=== PATIENT | male | born 1975 | race Caucasian/White ===

== ENCOUNTER 2017-10-08 23:30 | Emergency (ER) | payer BC ==
[2017-10-08] MEDS ORDERED: IPRATROPIUM-ALBUTEROL 3 ML NEB INHALATION STA (23:44)
[2017-10-08] MEDS ORDERED: DEXAMETHASONE SOD PHOSPHATE 10 MG/ML 1 ML VIAL IM STA (23:44)
[2017-10-08] MEDS ORDERED: AZITHROMYCIN 500 MG TAB PO STA (23:44)
[2017-10-08 23:45] VITALS: BP 162/78; RESP 18; TEMP 98.8
--- NOTE | 2017-10-08 23:55 | ED ---
General Adult HPI - General Chief complaint: Upper Respiratory Infection Stated complaint: LENA Time Seen by Provider: 10/08/17 23:41 Source: patient, RN notes reviewed, old records reviewed Mode of arrival: ambulatory Limitations: no limitations - History of Present Illness Initial comments: This is a 41-year-old male to the ER for evaluation. They presents for evaluation regarding cough congestion. Patient denies history of smoking but states she does get history of bronchitis. No medical history takes no medication. No chest pain. Denies fever. Patient states difficulty breathing 2 days. No improvement despite breathing treatments at home he does have inhaler from last year when he had similar symptoms - Related Data Home Medications Medication Instructions Recorded Confirmed Atorvastatin Calcium [Lipitor] 20 mg PO DAILY 02/27/17 02/27/17 Cholecalciferol [Vitamin D3] 1,000 unit PO DAILY 02/27/17 02/27/17 Labetalol HCl [Trandate] 300 mg PO BID 02/27/17 02/27/17 Omeprazole [PriLOSEC] 40 mg PO BID 02/27/17 02/27/17 amLODIPine BESYLATE [Norvasc] 5 mg PO DAILY 02/27/17 02/27/17 hydrALAZINE HCL 25 mg PO BID 02/27/17 02/27/17 Previous Rx's Medication Instructions Recorded Albuterol Inhaler [Ventolin Hfa 1 - 2 puff INHALATION Q4HR PRN #1 02/27/17 Inhaler] inhaler predniSONE 40 mg PO DAILY 5 Days #10 tab 02/27/17 Allergies Allergy/AdvReac Type Severity Reaction Status Date / Time bacitracin Allergy Unknown Verified 10/08/17 23:43 [From Neosporin ([id number])] codeine Allergy Unknown Verified 10/08/17 23:43 Childhood neomycin Allergy Unknown Verified 10/08/17 23:43 [From Neosporin ([id number])] polymyxin B Allergy Unknown Verified 10/08/17 23:43 [From Neosporin ([id number])] Review of Systems ROS Statement: Those systems with pertinent positive or pertinent negative responses have been documented in the HPI. ROS Other: All systems not noted in ROS Statement are negative. Past Medical History Past Medical History: No Reported History Additional Past Medical History / Comment(s): nephrotic syndrome History of Any Multi-Drug Resistant Organisms: None Reported Past Surgical History: No Surgical Hx Reported Past Psychological History: No Psychological Hx Reported Smoking Status: Former smoker Past Alcohol Use History: None Reported Past Drug Use History: None Reported General Exam Limitations: no limitations General appearance: alert, in no apparent distress Head exam: Present: atraumatic, normocephalic, normal inspection Eye exam: Present: normal appearance, PERRL, EOMI. Absent: scleral icterus, conjunctival injection, periorbital swelling ENT exam: Present: normal exam, mucous membranes moist Neck exam: Present: normal inspection. Absent: tenderness, meningismus, lymphadenopathy Respiratory exam: Present: normal lung sounds bilaterally, wheezes (Diffuse). Absent: respiratory distress, rales, rhonchi, stridor Cardiovascular Exam: Present: regular rate, normal rhythm, normal heart sounds. Absent: systolic murmur, diastolic murmur, rubs, gallop, clicks GI/Abdominal exam: Present: soft, normal bowel sounds. Absent: distended, tenderness, guarding, rebound, rigid Extremities exam: Present: normal inspection, full ROM, normal capillary refill. Absent: tenderness, pedal edema, joint swelling, calf tenderness Back exam: Present: normal inspection Neurological exam: Present: alert, oriented X3, CN II-XII intact Psychiatric exam: Present: normal affect, normal mood Skin exam: Present: warm, dry, intact, normal color. Absent: rash Course Vital Signs 10/08/17 23:43 Temperature 98.8 F Pulse Rate 98 Respiratory 18 Rate Blood Pressure 162/78 O2 Sat by Pulse 96 Oximetry - Reevaluation(s) Reevaluation #1: 10/08/17 23:54 Symptoms improved with breathing treatments, symptom management Medical Decision Making - Medical Decision Making 38 female the ER for evaluation, positive acute bronchitis, will be discharged and steroids breathing treatments. Patient feeling better after breathing treatment here in the ER, no acute distress able to ambulate without difficulty and patient can be discharged home - Radiology Data Radiology results: report reviewed (Chest x-rays negative for acute disease), image reviewed Disposition Clinical Impression: Upper respiratory infection, Acute bronchitis Disposition: HOME SELF-CARE Condition: Good Instructions: Upper Respiratory Infection (ED), Acute Bronchitis (ED) Is patient prescribed a controlled substance at d/c from ED?: No Referrals: Jose Quinones DO [Primary Care Provider] - 1-2 days
--- NOTE | 2017-10-09 00:06 | XR ---
EXAMINATION TYPE: XR chest 1V portable DATE OF EXAM: 10/08/2017 COMPARISON: 02/27/2017 HISTORY: Chest pain TECHNIQUE: Single frontal view of the chest is obtained. FINDINGS: Heart and mediastinum are normal. Lungs are clear. Diaphragm is normal. Bony thorax appear s normal. IMPRESSION: Normal chest. No change.
[2017-10-09 00:23] VITALS: PULSE 88
== END 2017-10-09 00:30 | disposition home or self-care (01) ==
LOC: EC 23:30
DX: J20.9 Acute bronchitis, unspecified (principal); J06.9 Acute upper respiratory infection, unspecified; Z87.891 Personal history of nicotine dependence; Z79.899 Other long term (current) drug therapy; Z88.1 Allergy status to other antibiotic agents; Z88.5 Allergy status to narcotic agent
CPT/HCPCS: 94640 ×2; 71045; 99284; 96372; J1100

== ENCOUNTER 2019-01-08 08:53 | Emergency (ER) | payer BC ==
[2019-01-08] MEDS ORDERED: IPRATROPIUM-ALBUTEROL 3 ML NEB INHALATION STA (09:18)
[2019-01-08] MEDS ORDERED: DEXAMETHASONE SOD PHOSPHATE 10 MG/ML 1 ML VIAL IV STA (09:18)
--- NOTE | 2019-01-08 09:21 | ED ---
General Adult HPI - General Chief complaint: Shortness of Breath Stated complaint: SOB Time Seen by Provider: 01/08/19 08:57 Source: patient Mode of arrival: wheelchair Limitations: no limitations - History of Present Illness Initial comments: Dictation was produced using [employer] dictation software. please excuse any grammatical, word or spelling errors. Chief Complaint: 43-year-old male past medical history of nephrotic syndrome presents with chief complaint shortness of breath. History of Present Illness: A 43-year-old male who has past medical history of nephrotic syndrome. Patient takes multiple medications for his nephrotic syndrome. Takes prednisone on a regular basis. Patient has been feeling sick for the last one week or so. He was given a Z-Brad with no significant improvement of his symptoms. 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 Patient was also given an albuterol inhaler from his primary care physician which has not improved his dyspnea at all. Patient den ies any history of fever. He gets usual swelling all over his body from the nephrotic syndrome. The ROS documented in this emergency department record has been reviewed and confirmed by me. Those systems with pertinent positive or negative responses have been documented in the HPI. All other systems are other negative and/or noncontributory. PHYSICAL EXAM: General Impression: Alert and oriented x3, not in acute distress HEENT: Normocephalic atraumatic, extra-ocular movements intact, pupils equal and reactive to light bilaterally, mucous membranes moist. Cardiovascular: Heart regular rate and rhythm, S1&S2 audible, no murmurs, rubs or gallops Chest: Bilateral lung wheezing and coughing Abdomen: Bowel sounds present, abdomen soft, non-tender, non-distended, no organomegaly Musculoskeletal: Pulses present and equal in all extremities, no peripheral edema Motor: no focal deficits noted Neurological: CN II-XII grossly intact, no focal motor or sensory deficits noted Skin: Intact with no visualized rashes Psych: Normal affect and mood ED course:43-year-old male presents chief complaint of dyspnea and URI type symptoms. Vital signs upon arrival shows heart rate of 108 with a respiratory rate of 30, rest vital signs within acceptable limits. Laboratory evaluation obtained. Leukocytosis of 0.2, metabolic panel is unremarkable. Urinalysis is unremarkable. Influenza is negative. Chest x-ray is nonacute. Patient breathing treatment, Decadron. Patient is much improved and he is amenable for discharge. Patient was recently on Keflex. We will give patient a 5 day Zithromax pack. Patient also given referral to outpatient pulmonology. Patient understandable agreeable to plan. He has albuterol inhaler at home. EKG interpretation: Ventricular rate 99, normal sinus rhythm,. Interval 140, QS 92, QTc 451. No MI prolongation, no QTC prolongation, no ST or T-wave changes noted. Overall, this EKG is unremarkable - Related Data Home Medications Medication Instructions Recorded Confirmed Atorvastatin Calcium [Lipitor] 20 mg PO HS 02/27/17 01/08/19 Labetalol HCl [Trandate] 300 mg PO BID 02/27/17 01/08/19 amLODIPine BESYLATE [Norvasc] 5 mg PO DAILY 02/27/17 01/08/19 Ergocalciferol [Vitamin D2] 50,000 unit PO Q7D 01/08/19 01/08/19 Furosemide [Lasix] 40 mg PO DAILY 01/08/19 01/08/19 Mycophenolate Mofetil [Cellcept] 1,500 mg PO BID 01/08/19 01/08/19 hydrALAZINE HCL 50 mg PO DAILY 01/08/19 01/08/19 Previous Rx's Medication Instructions Recorded Azithromycin [Zithromax Z-pack] 0 mg PO DIRECTED #6 tab 01/08/19 Allergies Allergy/AdvReac Type Severity Reaction Status Date / Time bacitracin Allergy Unknown Verified 01/08/19 10:04 [From Neosporin ([id number])] codeine Allergy Unknown Verified 01/08/19 10:04 Childhood neomycin Allergy Unknown Verified 01/08/19 10:04 [From Neosporin ([id number])] polymyxin B Allergy Unknown Verified 01/08/19 10:04 [From Neosporin ([id number])] Review of Systems ROS Statement: Those systems with pertinent positive or pertinent negative responses have been documented in the HPI. ROS Other: All systems not noted in ROS Statement are negative. Past Medical History Past Medical History: No Reported History Additional Past Medical History / Comment(s): nephrotic syndrome History of Any Multi-Drug Resistant Organisms: None Reported Past Surgical History: No Surgical Hx Reported Past Psychological History: No Psychological Hx Reported Smoking Status: Former smoker Past Alcohol Use History: None Reported Past Drug Use History: None Reported General Exam Limitations: no limitations Course Vital Signs 01/08/19 01/08/19 01/08/19 08:54 09:07 09:41 Temperature 98.0 F Pulse Rate 108 H 98 Respiratory 22 30 H Rate Blood Pressure 174/104 O2 Sat by Pulse 97 Oximetry 01/08/19 01/08/19 09:54 11:17 Temperature 98.1 F Pulse Rate 96 96 Respiratory 18 Rate Blood Pressure 168/114 O2 Sat by Pulse 96 Oximetry Medical Decision Making - Lab Data Result diagrams: 01/08/19 09:40 01/08/19 09:40 Lab Results 01/08/19 01/08/19 01/08/19 Range/Units 09:40 09:40 09:40 WBC 17.2 H (3.8-10.6) k/uL RBC 5.25 (4.30-5.90) m/uL Hgb 15.6 (13.0-17.5) gm/dL Hct 46.2 (39.0-53.0) % MCV 87.9 (80.0-100.0) fL MCH 29.6 (25.0-35.0) pg MCHC 33.7 (31.0-37.0) g/dL RDW 13.5 (11.5-15.5) % Plt Count 240 (150-450) k/uL Neutrophils % 80 % Lymphocytes % 8 % Monocytes % 7 % Eosinophils % 2 % Basophils % 1 % Neutrophils # 13.7 H (1.3-7.7) k/uL Lymphocytes # 1.4 (1.0-4.8) k/uL Monocytes # 1.2 H (0-1.0) k/uL Eosinophils # 0.4 (0-0.7) k/uL Basophils # 0.2 (0-0.2) k/uL Sodium 137 (137-145) mmol/L Potassium 4.0 (3.5-5.1) mmol/L Chloride 104 (98-107) mmol/L Carbon Dioxide 28 (22-30) mmol/L Anion Gap 5 mmol/L BUN 30 H (9-20) mg/dL Creatinine 1.62 H (0.66-1.25) mg/dL Est GFR (CKD-EPI)AfAm 58 (>60 ml/min/1.73 sqM) Est GFR (CKD-EPI)NonAf 51 (>60 ml/min/1.73 sqM) Glucose 89 (74-99) mg/dL Calcium 8.8 (8.4-10.2) mg/dL Magnesium 2.0 (1.6-2.3) mg/dL NT-Pro-B Natriuret Pep 151 pg/mL Urine Color Urine Appearance (Clear) Urine pH (5.0-8.0) Ur Specific Allen (1.001-1.035) Urine Protein (Negative) Urine Glucose (UA) (Negative) Urine Ketones (Negative) Urine Blood (Negative) Urine Nitrite (Negative) Urine Bilirubin (Negative) Urine Urobilinogen (<2.0) mg/dL Ur Leukocyte Esterase (Negative) Urine RBC (0-5) /hpf Urine WBC (0-5) /hpf Hyaline Casts (0-2) /lpf Urine Mucus (None) /hpf Influenza Type A RNA (Not Detectd) Influenza Type B (PCR) (Not Detectd) 01/08/19 01/08/19 Range/Units 13:01 13:10 WBC (3.8-10.6) k/uL RBC (4.30-5.90) m/uL Hgb (13.0-17.5) gm/dL Hct (39.0-53.0) % MCV (80.0-100.0) fL MCH (25.0-35.0) pg MCHC (31.0-37.0) g/dL RDW (11.5-15.5) % Plt Count (150-450) k/uL Neutrophils % % Lymphocytes % % Monocytes % % Eosinophils % % Basophils % % Neutrophils # (1.3-7.7) k/uL Lymphocytes # (1.0-4.8) k/uL Monocytes # (0-1.0) k/uL Eosinophils # (0-0.7) k/uL Basophils # (0-0.2) k/uL Sodium (137-145) mmol/L Potassium (3.5-5.1) mmol/L Chloride (98-107) mmol/L Carbon Dioxide (22-30) mmol/L Anion Gap mmol/L BUN (9-20) mg/dL Creatinine (0.66-1.25) mg/dL Est GFR (CKD-EPI)AfAm (>60 ml/min/1.73 sqM) Est GFR (CKD-EPI)NonAf (>60 ml/min/1.73 sqM) Glucose (74-99) mg/dL Calcium (8.4-10.2) mg/dL Magnesium (1.6-2.3) mg/dL NT-Pro-B Natriuret Pep pg/mL Urine Color Yellow Urine Appearance Clear (Clear) Urine pH 6.0 (5.0-8.0) Ur Specific Allen 1.027 (1.001-1.035) Urine Protein 3+ H (Negative) Urine Glucose (UA) Negative (Negative) Urine Ketones Negative (Negative) Urine Blood Moderate H (Negative) Urine Nitrite Negative (Negative) Urine Bilirubin Negative (Negative) Urine Urobilinogen <2.0 (<2.0) mg/dL Ur Leukocyte Esterase Negative (Negative) Urine RBC 1 (0-5) /hpf Urine WBC 2 (0-5) /hpf Hyaline Casts 8 H (0-2) /lpf Urine Mucus Rare H (None) /hpf Influenza Type A RNA Not Detected (Not Detectd) Influenza Type B (PCR) Not Detected (Not Detectd) Disposition Clinical Impression: URI (upper respiratory infection), Bronchitis Disposition: HOME SELF-CARE Condition: Good Instructions (If sedation given, give patient instructions): Acute Bronchitis (ED) Prescriptions: Azithromycin [Zithromax Z-pack] 0 mg PO DIRECTED #6 tab Is patient prescribed a controlled substance at d/c from ED?: No Referrals: Wesly Reddy DO [Doctor of Osteopathic Medicine] - 1-2 days Time of Disposition: 14:02
[2019-01-08 09:55] LABS: Basophils # (A) 0.2 k/uL (0-0.2); Basophils % (A) 1 %; Eosinophils # (A) 0.4 k/uL (0-0.7); Eosinophils % (A) 2 %; HCT 46.2 % (39.0-53.0); HGB 15.6 gm/dL (13.0-17.5); Lymphocytes # (A) 1.4 k/uL (1.0-4.8); Lymphocytes % (A) 8 %; MCH 29.6 pg (25.0-35.0); MCHC 33.7 g/dL (31.0-37.0); MCV 87.9 fL (80.0-100.0); Mean Platelet Volume 7.1; Monocytes # (A) 1.2 k/uL (0-1.0); Monocytes % (A) 7 %; Neutrophils # (A) 13.7 k/uL (1.3-7.7); Neutrophils % (A) 80 %; Platelet Count 240 k/uL (150-450); RBC 5.25 m/uL (4.30-5.90); RDW 13.5 % (11.5-15.5); WBC 17.2 k/uL (3.8-10.6)
[2019-01-08 10:09] LABS: Calcium 8.8 mg/dL (8.4-10.2)
--- NOTE | 2019-01-08 10:18 | XR ---
EXAMINATION TYPE: XR chest 2V DATE OF EXAM: 01/08/2019 COMPARISON: Chest x-ray October 08, 2014 HISTORY: Dyspnea with productive cough and chest tightness. TECHNIQUE: Frontal and lateral views of the chest are obtained. FINDINGS: There is chronic parenchymal change without suspicious focal air space opacity, pleural ef fusion, or pneumothorax seen. The cardiac silhouette size is within normal limits. Underlying dextro convex scoliosis centered midthoracic spine is seen. IMPRESSION: Chronic changes without suspicious acute pulmonary process.
[2019-01-08 11:20] VITALS: RESP 18
[2019-01-08 13:36] LABS: Appearance,Urine Clear (Clear); Bilirubin,Urine Negative (Negative); Blood,Urine Moderate (Negative); Color,Urine Yellow; Glucose,Urine (UA) Negative (Negative); Hyaline Casts,Urine 8 /lpf (0-2); Ketones,Urine Negative (Negative); Leukocyte Esterase,Urine Negative (Negative); Mucus,Urine Rare /hpf; Nitrite,Urine Negative (Negative); Protein,Urine 3+ (Negative); RBC,Urine 1 /hpf (0-5); Specific Gravity,Urine 1.027 (1.001-1.035); Urobilinogen,Urine <2.0 mg/dL (<2.0)
[2019-01-08 14:21] VITALS: BP 160/100; PULSE 89; TEMP 98.3
== END 2019-01-08 14:21 | disposition home or self-care (01) ==
LOC: EC 08:53
DX: J40 Bronchitis, not specified as acute or chronic (principal); J06.9 Acute upper respiratory infection, unspecified; N04.9 Nephrotic syndrome with unspecified morphologic changes; Z79.899 Other long term (current) drug therapy; Z79.51 Long term (current) use of inhaled steroids; Z88.1 Allergy status to other antibiotic agents; Z88.5 Allergy status to narcotic agent; Z87.891 Personal history of nicotine dependence
CPT/HCPCS: 36415; 94640; 93005; 83880; 80048; 83735; 85025; 81001; 87502; 71046; 99285; 96374; J1100

== ENCOUNTER 2019-03-16 05:50 | Day surgery (SDC) | payer BC ==
[2019-03-12 18:26] VITALS: BMI 32.0
[~2019-03-16 05:50] MED LIST: DEXAMETHASONE SOD PHOSPHATE 10 MG/ML 1 ML VIAL IV ONE; LACTATED RINGERS 1,000 ML IV SCH; MIDAZOLAM 2 MG/2 ML VIAL IV PRN; SCOPOLAMINE 1.5MG/72HR PATCH TRANSDERM ONE; ceFAZolin 3 GM in SODIUM CHLORIDE 0.9% 100 ML IVPB ONE; fentaNYL (PF) 50 MCG/ML 2 ML AMP IV PRN
[2019-03-16 06:33] LABS: HGB 15.9 gm/dL (13.0-17.5); MCH 29.9 pg (25.0-35.0); MCHC 33.8 g/dL (31.0-37.0); MCV 88.4 fL (80.0-100.0); Mean Platelet Volume 6.8; Platelet Count 305 k/uL (150-450); RBC 5.32 m/uL (4.30-5.90); RDW 13.7 % (11.5-15.5); WBC 17.4 k/uL (3.8-10.6)
[2019-03-16 06:35] LABS: Glucose,Whole Blood 104 mg/dL (75-99)
[2019-03-16] MEDS: ONDANSETRON 4 MG/2 ML VIAL IVP ONE ×2 (06:45→11:45)
[2019-03-16] MEDS ORDERED: HYDROCORTISONE SUCCINATE 100 MG/2 ML VIAL IVP ONE (06:52)
[2019-03-16] MEDS ORDERED: BUPIVACAINE (PF) 0.25% 30 ML VIAL SQ ONE ×2 (07:16→08:12)
[2019-03-16] MEDS ORDERED: MIDAZOLAM 2 MG/2 ML VIAL ONE (07:44)
[2019-03-16] MEDS ORDERED: HYDROmorphone (PF) 1 MG/ML ONE (07:44)
[2019-03-16] MEDS ORDERED: PROPOFOL 10 MG/ML 20 ML VIAL IV ONE (07:44)
[2019-03-16] MEDS ORDERED: MINERAL OIL 133 ML ENEMA RECTAL ONE (07:44)
[2019-03-16] MEDS ORDERED: SUCCINYLCHOLINE CHLORIDE VIAL 200 MG/10 ML VIAL IV ONE (07:44)
[2019-03-16] MEDS ORDERED: fentaNYL (PF) 50 MCG/ML 2 ML AMP ONE (07:44)
[2019-03-16] MEDS ORDERED: ROCURONIUM BROMIDE 10 MG/ML 10 ML VIAL IV ONE (07:44)
[2019-03-16] MEDS ORDERED: SODIUM CHLORIDE 4MEQ/ML 30 ML VIAL IV ONE (07:44)
[2019-03-16] MEDS ORDERED: LIDOCAINE 1% INJ 10MG/ML (20 ML MDV) ONE (07:44)
[2019-03-16] MEDS ORDERED: HEPARIN SODIUM,PORCINE 5,000 UNIT/ML 1 ML VIAL SQ ONE (07:46)
--- NOTE | 2019-03-16 07:52 | P.GSHP ---
History of Present Illness H&P Date: 03/16/19 Chief Complaint: Umbilical hernia This a 43-year-old male who's tilt umbilical hernia. Patient presents today for laparoscopic robotic-assisted repair. Past Medical History Past Medical History: GERD/Reflux, Hyperlipidemia, Hypertension, Renal Disease Additional Past Medical History / Comment(s): Nephrotic Syndrome since 2007. Hx Bronchitis,URI, has possible allergies. Umbilical hernia currently. Edema ankles, feet. History of Any Multi-Drug Resistant Organisms: None Reported Past Surgical History: No Surgical Hx Reported Additional Past Surgical History / Comment(s): Biopsy kidneys. Colonoscopy, EGD Past Anesthesia/Blood Transfusion Reactions: Motion Sickness Smoking Status: Never smoker - Past Family History Mother Family Medical History: No Reported History Medications and Allergies Home Medications Medication Instructions Recorded Confirmed Type Atorvastatin Calcium [Lipitor] 20 mg PO HS 02/27/17 03/12/19 History Labetalol HCl [Trandate] 300 mg PO BID 02/27/17 03/12/19 History amLODIPine BESYLATE [Norvasc] 5 mg PO DAILY 02/27/17 03/12/19 History Ergocalciferol [Vitamin D2] 50,000 unit PO Q7D 01/08/19 03/12/19 History Furosemide [Lasix] 40 mg PO DAILY 01/08/19 03/12/19 History Mycophenolate Mofetil [Cellcept] 1,500 mg PO BID 01/08/19 03/12/19 History hydrALAZINE HCL 50 mg PO DAILY 01/08/19 03/12/19 History Omeprazole 40 mg PO BID 03/12/19 03/12/19 History predniSONE 30 mg PO DAILY 03/12/19 03/12/19 History Allergies Allergy/AdvReac Type Severity Reaction Status Date / Time bacitracin Allergy Unknown Verified 03/16/19 06:09 [From Neosporin ([id number])] codeine Allergy Unknown Verified 03/16/19 06:09 Childhood neomycin Allergy Unknown Verified 03/16/19 06:09 [From Neosporin ([id number])] polymyxin B Allergy Unknown Verified 03/16/19 06:09 [From Neosporin ([id number])] Surgical - Exam Vital Signs Temp Pulse Resp BP Pulse Ox 98.7 F 75 16 171/107 96 03/16/19 06:30 03/16/19 06:30 03/16/19 06:30 03/16/19 06:30 03/16/19 06:30 - General well developed, well nourished - Eyes PERRL - ENT normal pinna - Neck no masses - Respiratory normal expansion - Cardiovascular Rhythm: regular - Abdomen Abdomen: soft, non tender Hernia: umbilical (3 cm umbilical hernia) Results - Labs 03/16/19 06:21 Abnormal Lab Results - Last 24 Hours (Table) 03/16/19 03/16/19 Range/Units 06:21 06:28 WBC 17.4 H (3.8-10.6) k/uL POC Glucose (mg/dL) 104 H (75-99) mg/dL Assessment and Plan Assessment: Umbilical hernia. We'll perform laparoscopic robotic-assisted repair.
[2019-03-16] MEDS ORDERED: HYDROmorphone 1 MG/ML 1 ML SYRINGE IVP ONE ×3 (08:59→09:16)
--- NOTE | 2019-03-16 09:02 | P.OP ---
Date of Procedure: 03/16/19 Preoperative Diagnosis: Incarcerated umbilical hernia Postoperative Diagnosis: Incarcerated umbilical hernia Procedure(s) Performed: Laparoscopic robotic system repair of incarcerated umbilical hernia Partial omentectomy Anesthesia: ALONDRA Surgeon: Ross Flanagan Estimated Blood Loss (ml): 5 Pathology: other (Omentum) Condition: stable Disposition: PACU Description of Procedure: The patient was placed on the operating table in the supine position. He received general anesthesia. His abdomen was prepped and draped usual fashion. Using a 5 mm optical trocar under direct visualization the peritoneal cavity was entered in the left upper quadrant. The abdomen was then insufflated. The laparoscope was placed back into the perineal cavity. Next a 8 mm robotic trocar was placed in the left lower quadrant and a 12 mm robotic trocar was placed in the left lateral position. The original 5 mm trocar was exchanged for a 8 mm robotic trocar. The patient's placed in the left side up position. And the patient was undocked the robot. The umbilical hernia was visualized. Using hook cautery the peritoneum over the umbilical hernia was excised. The incarcerated omentum was dissected free and sent to pathology. The fascial opening was repaired using 0V LOC suture. Next a piece of 11 cm round ventral light ST mesh was placed into the. Cavity and secured with 2 OV lock suture. The patient was undocked the robot. The needles were retrieved. The fascia of the 12 mm trocar site was closed with 0 Ethibond suture. Skin was closed interrupted 3-0 Monocryl suture. Dermabond dressings was applied. Patient top procedure well and was sent to recovery room stable condition.
[2019-03-16 09:04] VITALS: TEMP 97.9
[2019-03-16 09:31] VITALS: RESP 16
[2019-03-16] MEDS ORDERED: LACTATED RINGERS 1,000 ML IV ONE (09:31)
[2019-03-16] MEDS ORDERED: HYDROcodone/APAP 5-325MG 1 EACH TAB PO ONE (11:15)
[2019-03-16 11:22] VITALS: PULSE 83
[2019-03-16 12:11] VITALS: BP 153/98
== END 2019-03-16 12:26 | disposition home or self-care (01) ==
LOC: OR 05:50
PROVIDERS: ATTEND Surgery
DX: K42.0 Umbilical hernia with obstruction, without gangrene (principal); K21.9 Gastro-esophageal reflux disease without esophagitis; I10 Essential (primary) hypertension; E78.5 Hyperlipidemia, unspecified; N04.9 Nephrotic syndrome with unspecified morphologic changes; J06.9 Acute upper respiratory infection, unspecified; K65.4 Sclerosing mesenteritis; Z98.890 Other specified postprocedural states; Z79.899 Other long term (current) drug therapy; Z88.2 Allergy status to sulfonamides; Z88.5 Allergy status to narcotic agent; Z88.1 Allergy status to other antibiotic agents
CPT/HCPCS: 49653; 88302 ×2; 85027; C1781; J2250; J0330; J1644; J1100; J1720; J0690; J2405; J2001; J3010; J1170; J2704

== ENCOUNTER 2020-04-28 21:29 | Emergency (ER) | payer BC ==
--- NOTE | 2020-04-28 22:08 | ED ---
SOB HPI - General Chief Complaint: Shortness of Breath Stated Complaint: SOB Time Seen by Provider: 04/28/20 21:54 Source: patient Mode of arrival: ambulatory Limitations: no limitations - History of Present Illness Initial Comments: This patient is a 44-year-old man with history of nephrotic syndrome who presents with complaint that he is developing shortness of breath. He noticed it from the morning. He states it is similar episode and was seen here in emergency department approximately year ago, when he was given inhaled medications and was able to go home. He does not have any known lung disease. He does not recall having a fever today. No chest pain. He states he is having a little bit of a cough with some occasional greenish sputum. No change in urination or bowel movements. No leg pain or swelling. MD Complaint: shortness of breath, cough Onset/Timin -: days(s) Severity scale (1-10): 0 Consistency: constant Improves With: nothing Worsens With: lying flat, exertion Associated Symptoms: cough Treatments Prior to Arrival: none - Related Data Home Oxygen Therapy: No Home Medications Medication Instructions Recorded Confirmed Atorvastatin Calcium [Lipitor] 20 mg PO HS 02/27/17 04/28/20 Labetalol HCl [Trandate] 300 mg PO BID 02/27/17 04/28/20 amLODIPine BESYLATE [Norvasc] 5 mg PO DAILY 02/27/17 04/28/20 Ergocalciferol [Vitamin D2] 50,000 unit PO MO 01/08/19 04/28/20 Furosemide [Lasix] 80 mg PO DAILY 01/08/19 04/28/20 hydrALAZINE HCL 50 mg PO BID 01/08/19 04/28/20 Omeprazole 40 mg PO BID 03/12/19 04/28/20 Albuterol Sulfate [Proair Hfa] 1 - 2 puff INHALATION RT-Q6H PRN 04/28/20 04/28/20 Brimonidine Tartrate/Timolol 1 drop RIGHT EYE BID 04/28/20 04/28/20 [Combigan 0.2%-0.5% Eye Drops] Cyclophosphamide 150 mg PO DAILY 04/28/20 04/28/20 Guaifenesin/Dextromethorphan 1 cap PO DAILY PRN 04/28/20 04/28/20 [Robitussin [id number] Dm] Prednisolone Acetate/Pf 1 drop RIGHT EYE TID 04/28/20 04/28/20 [Prednisolone Acet 1% Eye Drop] Previous Rx's Medication Instructions Recorded Albuterol Inhaler [Ventolin Hfa 2 puff INHALATION Q4HR PRN #1 04/28/20 Inhaler] inhaler Azithromycin [Zithromax Z-pack (6 250 mg PO DIRECTED #6 tab 04/28/20 tabs)] predniSONE 60 mg PO DAILY #30 tab 04/28/20 Allergies Allergy/AdvReac Type Severity Reaction Status Date / Time bacitracin Allergy Unknown Verified 04/28/20 23:14 [From Neosporin ([id number])] codeine Allergy Unknown Verified 04/28/20 23:14 Childhood neomycin Allergy Unknown Verified 04/28/20 23:14 [From Neosporin ([id number])] polymyxin B Allergy Unknown Verified 04/28/20 23:14 [From Neosporin ([id number])] Review of Systems ROS Statement: Those systems with pertinent positive or pertinent negative responses have been documented in the HPI. ROS Other: All systems not noted in ROS Statement are negative. Constitutional: Denies: fever, chills Respiratory: Reports: cough, dyspnea. Denies: wheezes, hemoptysis Cardiovascular: Reports: dyspnea on exertion, orthopnea. Denies: chest pain, palpitations, edema, syncope Gastrointestinal: Denies: abdominal pain, nausea, vomiting, diarrhea, melena, hematochezia Genitourinary: Denies: dysuria, hematuria Musculoskeletal: Denies: back pain Skin: Denies: rash Neurological: Denies: headache, weakness, numbness Psychiatric: Reports: anxiety Past Medical History Past Medical History: GERD/Reflux, Hyperlipidemia, Hypertension, Renal Disease Additional Past Medical History / Comment(s): Nephrotic Syndrome since 2007. Hx Bronchitis,URI, has possible allergies. Umbilical hernia currently. Edema ankles, feet. History of Any Multi-Drug Resistant Organisms: None Reported Past Surgical History: No Surgical Hx Reported Additional Past Surgical History / Comment(s): Biopsy kidneys. Colonoscopy, EGD Past Anesthesia/Blood Transfusion Reactions: Motion Sickness Past Psychological History: Anxiety Smoking Status: Never smoker Past Alcohol Use History: None Reported Past Drug Use History: None Reported - Past Family History Mother Family Medical History: No Reported History General Exam Limitations: no limitations General appearance: alert, in no apparent distress Head exam: Present: atraumatic, normocephalic Eye exam: Present: conjunctival injection (Right eye). Absent: scleral icterus ENT exam: Present: normal oropharynx Neck exam: Present: normal inspection Respiratory exam: Present: wheezes. Absent: respiratory distress, rales, rhonchi, stridor, accessory muscle use, decreased breath sounds, prolonged expiratory Cardiovascular Exam: Present: regular rate, normal rhythm, normal heart sounds. Absent: systolic murmur, diastolic murmur, rubs, gallop GI/Abdominal exam: Present: soft. Absent: distended, tenderness, guarding, rebound, rigid, mass Extremities exam: Present: normal inspection, normal capillary refill. Absent: pedal edema, calf tenderness Back exam: Present: normal inspection. Absent: CVA tenderness (R), CVA tenderness (L) Neurological exam: Present: alert Skin exam: Present: warm, dry, intact, normal color. Absent: rash Course Vital Signs 04/28/20 04/28/20 04/28/20 21:36 22:16 22:27 Temperature 99.8 F H Pulse Rate 91 70 75 Respiratory 20 Rate Blood Pressure 150/90 O2 Sat by Pulse 93 L Oximetry 04/28/20 04/28/20 22:30 23:30 Temperature 98.3 F Pulse Rate 76 69 Respiratory 19 17 Rate Blood Pressure 157/98 161/97 O2 Sat by Pulse 94 L 94 L Oximetry Medical Decision Making - Lab Data Result diagrams: 04/28/20 22:24 04/28/20 22:24 Lab Results 04/28/20 04/28/20 04/28/20 Range/Units 22:24 22:24 22:24 WBC 8.8 (3.8-10.6) k/uL RBC 4.16 L (4.30-5.90) m/uL Hgb 14.0 (13.0-17.5) gm/dL Hct 38.9 L (39.0-53.0) % MCV 93.6 (80.0-100.0) fL MCH 33.7 (25.0-35.0) pg MCHC 36.0 (31.0-37.0) g/dL RDW 13.4 (11.5-15.5) % Plt Count 144 L (150-450) k/uL MPV 7.6 Neutrophils % 80 % Lymphocytes % 5 % Monocytes % 8 % Eosinophils % 5 % Basophils % 1 % Neutrophils # 7.1 (1.3-7.7) k/uL Lymphocytes # 0.4 L (1.0-4.8) k/uL Monocytes # 0.7 (0-1.0) k/uL Eosinophils # 0.4 (0-0.7) k/uL Basophils # 0.1 (0-0.2) k/uL PT 9.5 (9.0-12.0) sec INR 0.9 (<1.2) APTT 22.8 (22.0-30.0) sec D-Dimer 0.52 (<0.60) mg/L FEU Sodium 138 (137-145) mmol/L Potassium 3.4 L (3.5-5.1) mmol/L Chloride 109 H (98-107) mmol/L Carbon Dioxide 25 (22-30) mmol/L Anion Gap 4 mmol/L BUN 17 (9-20) mg/dL Creatinine 1.35 H (0.66-1.25) mg/dL Est GFR (CKD-EPI)AfAm 72 (>60 ml/min/1.73 sqM) Est GFR (CKD-EPI)NonAf 63 (>60 ml/min/1.73 sqM) Glucose 109 H (74-99) mg/dL Plasma Lactic Acid Torrey (0.7-2.0) mmol/L Calcium 8.7 (8.4-10.2) mg/dL Magnesium 1.6 (1.6-2.3) mg/dL Total Bilirubin 0.5 (0.2-1.3) mg/dL AST 28 (17-59) U/L ALT 15 (4-49) U/L Alkaline Phosphatase 94 (38-126) U/L Troponin I (0.000-0.034) ng/mL NT-Pro-B Natriuret Pep pg/mL Total Protein 6.3 (6.3-8.2) g/dL Albumin 3.4 L (3.5-5.0) g/dL Urine Color Urine Appearance (Clear) Urine pH (5.0-8.0) Ur Specific Ransom (1.001-1.035) Urine Protein (Negative) Urine Glucose (UA) (Negative) Urine Ketones (Negative) Urine Blood (Negative) Urine Nitrite (Negative) Urine Bilirubin (Negative) Urine Urobilinogen (<2.0) mg/dL Ur Leukocyte Esterase (Negative) Urine RBC (0-5) /hpf Urine WBC (0-5) /hpf Ur Squamous Epith Cells (0-4) /hpf Urine Mucus (None) /hpf Coronavirus (PCR) (Not Detectd) 04/28/20 04/28/20 04/28/20 Range/Units 22:24 22:24 22:24 WBC (3.8-10.6) k/uL RBC (4.30-5.90) m/uL Hgb (13.0-17.5) gm/dL Hct (39.0-53.0) % MCV (80.0-100.0) fL MCH (25.0-35.0) pg MCHC (31.0-37.0) g/dL RDW (11.5-15.5) % Plt Count (150-450) k/uL MPV Neutrophils % % Lymphocytes % % Monocytes % % Eosinophils % % Basophils % % Neutrophils # (1.3-7.7) k/uL Lymphocytes # (1.0-4.8) k/uL Monocytes # (0-1.0) k/uL Eosinophils # (0-0.7) k/uL Basophils # (0-0.2) k/uL PT (9.0-12.0) sec INR (<1.2) APTT (22.0-30.0) sec D-Dimer (<0.60) mg/L FEU Sodium (137-145) mmol/L Potassium (3.5-5.1) mmol/L Chloride (98-107) mmol/L Carbon Dioxide (22-30) mmol/L Anion Gap mmol/L BUN (9-20) mg/dL Creatinine (0.66-1.25) mg/dL Est GFR (CKD-EPI)AfAm (>60 ml/min/1.73 sqM) Est GFR (CKD-EPI)NonAf (>60 ml/min/1.73 sqM) Glucose (74-99) mg/dL Plasma Lactic Acid Torrey 0.9 (0.7-2.0) mmol/L Calcium (8.4-10.2) mg/dL Magnesium (1.6-2.3) mg/dL Total Bilirubin (0.2-1.3) mg/dL AST (17-59) U/L ALT (4-49) U/L Alkaline Phosphatase (38-126) U/L Troponin I <0.012 (0.000-0.034) ng/mL NT-Pro-B Natriuret Pep 171 pg/mL Total Protein (6.3-8.2) g/dL Albumin (3.5-5.0) g/dL Urine Color Urine Appearance (Clear) Urine pH (5.0-8.0) Ur Specific Ransom (1.001-1.035) Urine Protein (Negative) Urine Glucose (UA) (Negative) Urine Ketones (Negative) Urine Blood (Negative) Urine Nitrite (Negative) Urine Bilirubin (Negative) Urine Urobilinogen (<2.0) mg/dL Ur Leukocyte Esterase (Negative) Urine RBC (0-5) /hpf Urine WBC (0-5) /hpf Ur Squamous Epith Cells (0-4) /hpf Urine Mucus (None) /hpf Coronavirus (PCR) (Not Detectd) 04/28/20 04/28/20 Range/Units 22:51 22:51 WBC (3.8-10.6) k/uL RBC (4.30-5.90) m/uL Hgb (13.0-17.5) gm/dL Hct (39.0-53.0) % MCV (80.0-100.0) fL MCH (25.0-35.0) pg MCHC (31.0-37.0) g/dL RDW (11.5-15.5) % Plt Count (150-450) k/uL MPV Neutrophils % % Lymphocytes % % Monocytes % % Eosinophils % % Basophils % % Neutrophils # (1.3-7.7) k/uL Lymphocytes # (1.0-4.8) k/uL Monocytes # (0-1.0) k/uL Eosinophils # (0-0.7) k/uL Basophils # (0-0.2) k/uL PT (9.0-12.0) sec INR (<1.2) APTT (22.0-30.0) sec D-Dimer (<0.60) mg/L FEU Sodium (137-145) mmol/L Potassium (3.5-5.1) mmol/L Chloride (98-107) mmol/L Carbon Dioxide (22-30) mmol/L Anion Gap mmol/L BUN (9-20) mg/dL Creatinine (0.66-1.25) mg/dL Est GFR (CKD-EPI)AfAm (>60 ml/min/1.73 sqM) Est GFR (CKD-EPI)NonAf (>60 ml/min/1.73 sqM) Glucose (74-99) mg/dL Plasma Lactic Acid Torrey (0.7-2.0) mmol/L Calcium (8.4-10.2) mg/dL Magnesium (1.6-2.3) mg/dL Total Bilirubin (0.2-1.3) mg/dL AST (17-59) U/L ALT (4-49) U/L Alkaline Phosphatase (38-126) U/L Troponin I (0.000-0.034) ng/mL NT-Pro-B Natriuret Pep pg/mL Total Protein (6.3-8.2) g/dL Albumin (3.5-5.0) g/dL Urine Color Yellow Urine Appearance Clear (Clear) Urine pH 6.0 (5.0-8.0) Ur Specific Ransom 1.026 (1.001-1.035) Urine Protein 3+ H (Negative) Urine Glucose (UA) Negative (Negative) Urine Ketones Negative (Negative) Urine Blood Trace H (Negative) Urine Nitrite Negative (Negative) Urine Bilirubin Negative (Negative) Urine Urobilinogen <2.0 (<2.0) mg/dL Ur Leukocyte Esterase Negative (Negative) Urine RBC <1 (0-5) /hpf Urine WBC 3 (0-5) /hpf Ur Squamous Epith Cells <1 (0-4) /hpf Urine Mucus Rare H (None) /hpf Coronavirus (PCR) Not Detected (Not Detectd) - EKG Data -: EKG Interpreted by Me EKG shows normal: sinus rhythm, axis (Normal), intervals (Normal), QRS complexes (Normal), ST-T waves (Normal) Rate: normal (Rate 80 bpm) Disposition Clinical Impression: Bronchitis Disposition: HOME SELF-CARE Condition: Good Instructions (If sedation given, give patient instructions): Acute Bronchitis (ED) Prescriptions: predniSONE 60 mg PO DAILY #30 tab Albuterol Inhaler [Ventolin Hfa Inhaler] 2 puff INHALATION Q4HR PRN #1 inhaler PRN Reason: Wheezing Azithromycin [Zithromax Z-pack (6 tabs)] 250 mg PO DIRECTED #6 tab Is patient prescribed a controlled substance at d/c from ED?: No Referrals: Jose Quinones DO [Primary Care Provider] - 1-2 days
[2020-04-28] MEDS: IPRATROPIUM-ALBUTEROL 3 ML NEB INHALATION STA (22:16)
[2020-04-28] MEDS: ALBUTEROL NEBULIZED 2.5 MG/3 ML INHALATION STA (22:16)
[2020-04-28 22:33] LABS: Basophils # (A) 0.1 k/uL (0-0.2); Basophils % (A) 1 %; Eosinophils # (A) 0.4 k/uL (0-0.7); Eosinophils % (A) 5 %; HCT 38.9 % (39.0-53.0); Lymphocytes # (A) 0.4 k/uL (1.0-4.8); Lymphocytes % (A) 5 %; MCH 33.7 pg (25.0-35.0); MCV 93.6 fL (80.0-100.0); Mean Platelet Volume 7.6; Monocytes # (A) 0.7 k/uL (0-1.0); Monocytes % (A) 8 %; Neutrophils # (A) 7.1 k/uL (1.3-7.7); Neutrophils % (A) 80 %; Platelet Count 144 k/uL (150-450); RBC 4.16 m/uL (4.30-5.90); RDW 13.4 % (11.5-15.5); WBC 8.8 k/uL (3.8-10.6)
[2020-04-28 22:42] LABS: Albumin 3.4 g/dL (3.5-5.0); Calcium 8.7 mg/dL (8.4-10.2); Magnesium 1.6 mg/dL (1.6-2.3); Potassium 3.4 mmol/L (3.5-5.1); Total Bilirubin 0.5 mg/dL (0.2-1.3); Total Protein 6.3 g/dL (6.3-8.2)
[2020-04-28 22:50] LABS: D-Dimer 0.52 mg/L FEU (<0.60); INR 0.9 (<1.2); Partial Thromboplastin Time 22.8 sec (22.0-30.0); Prothrombin Time 9.5 sec (9.0-12.0)
[2020-04-28] MEDS: predniSONE 20 MG TAB PO STA (22:50)
--- NOTE | 2020-04-28 23:07 | XR ---
EXAMINATION TYPE: XR chest 2V DATE OF EXAM: 04/28/2020 COMPARISON: 01/08/2019 HISTORY: Short of breath TECHNIQUE: FINDINGS: Heart and mediastinum are normal. Lungs are clear. Diaphragm is normal. Bony thorax appears normal. IMPRESSION: Normal chest. No change.
[2020-04-28 23:10] LABS: Appearance,Urine Clear (Clear); Bilirubin,Urine Negative (Negative); Blood,Urine Trace (Negative); Color,Urine Yellow; Glucose,Urine (UA) Negative (Negative); Ketones,Urine Negative (Negative); Leukocyte Esterase,Urine Negative (Negative); Mucus,Urine Rare /hpf; Nitrite,Urine Negative (Negative); Protein,Urine 3+ (Negative); RBC,Urine <1 /hpf (0-5); Specific Gravity,Urine 1.026 (1.001-1.035); Squamous Epithelial Cell,Urine <1 /hpf (0-4); Urobilinogen,Urine <2.0 mg/dL (<2.0); WBC,Urine 3 /hpf (0-5)
[2020-04-29] MEDS: ALBUTEROL NEBULIZED 2.5 MG/3 ML INHALATION STA (00:36)
[2020-04-29 01:13] VITALS: BP 158/98; PULSE 74; RESP 19; TEMP 98.5
== END 2020-04-29 01:09 | disposition home or self-care (01) ==
LOC: EC 21:29
DX: J40 Bronchitis, not specified as acute or chronic (principal); Z20.828 Contact with and (suspected) exposure to other viral communicable diseases; N04.9 Nephrotic syndrome with unspecified morphologic changes; K21.9 Gastro-esophageal reflux disease without esophagitis; E78.5 Hyperlipidemia, unspecified; I10 Essential (primary) hypertension; F41.9 Anxiety disorder, unspecified; Z79.899 Other long term (current) drug therapy; Z88.1 Allergy status to other antibiotic agents; Z88.5 Allergy status to narcotic agent; Z88.8 Allergy status to other drugs, medicaments and biological substances
CPT/HCPCS: 36415; 94640 ×2; 93005; 85379; 83880; 80053; 83605; 83735; 84484; 85025; 85610; 85730; 81001; 87040; 87635; 71046; 99285; J7512

== ENCOUNTER → 2020-10-05 | Outpatient (CLI) | payer BC ==
[2020-10-05 09:42] LABS: INR 0.9 (<1.2); Partial Thromboplastin Time 22.1 sec (22.0-30.0); Prothrombin Time 9.5 sec (9.0-12.0)
[2020-10-05 15:51] LABS: Basophils # (A) 0.04 X 10*3/uL (0.00-0.10); Basophils % (A) 0.9 %; Eosinophils # (A) 0.43 X 10*3/uL (0.04-0.35); Eosinophils % (A) 9.9 %; HCT 36.6 % (39.6-50.0); HGB 12.8 g/dL (13.0-17.0); Lymphocytes # (A) 0.54 X 10*3/uL (0.90-5.00); Lymphocytes % (A) 12.4 %; MCH 34.1 pg (27.0-32.0); MCV 97.6 fL (80.0-97.0); Mean Platelet Volume 10.9 fL (9.5-12.2); Monocytes # (A) 0.62 X 10*3/uL (0.20-1.00); Monocytes % (A) 14.2 %; Neutrophils # (A) 2.72 X 10*3/uL (1.80-7.70); Neutrophils % (A) 62.4 %; Platelet Count 196 X 10*3/uL (140-440); RBC 3.75 X 10*6/uL (4.40-5.60); RDW 12.3 % (11.5-14.5); WBC 4.36 X 10*3/uL (4.50-10.00)
[2020-10-05 18:31] LABS: African American GFR (CKD) 54.8 (60.0-200.0); Anion Gap 6.7 mmol/L (4.00-12.00); Carbon Dioxide 21.3 mmol/L (21.6-31.8); Non-African American GFR(CKD) 47.3 (60.0-200.0); Potassium 3.9 mmol/L (3.5-5.5)
== END | disposition home or self-care (01) ==
LOC: LABWHC1 08:16
PROVIDERS: ATTEND Internal Medicine Nephrology
DX: N05.2 Unspecified nephritic syndrome with diffuse membranous glomerulonephritis (principal)
CPT/HCPCS: 36415; 80051; 82565; 84520; 85025; 85610; 85730; 86850; 86900; 86901; 86920

== ENCOUNTER 2020-10-06 08:56 | Day surgery (SDC) | payer BC ==
[2020-10-06 09:15] VITALS: RESP 16; TEMP 98.3
[2020-10-06 10:11] VITALS: PULSE 66
[2020-10-06] MEDS ORDERED: HYDROmorphone 0.5 MG/0.5 ML SYRINGE IVP STA (10:15)
[2020-10-06 10:52] VITALS: BP 188/96
--- NOTE | 2020-10-06 11:33 | CT ---
EXAMINATION TYPE: CT discontinued procedure DATE OF EXAM: 10/06/2020 COMPARISON: None HISTORY: DISCONTINUED RENAL BX CT DLP: 497 mGycm Automated exposure control for dose reduction was used. FINDINGS: The patient had an elevated blood pressure, hypertension was not compatible with the procedure. Proce dure was therefore discontinued. IMPRESSION: DISCONTINUED PROCEDURE DUE TO ELEVATED BLOOD PRESSURE.
== END 2020-10-06 10:40 | disposition home or self-care (01) ==
LOC: RADPROMAIN 08:56
PROVIDERS: ATTEND Internal Medicine Nephrology
DX: N05.2 Unspecified nephritic syndrome with diffuse membranous glomerulonephritis (principal); Z53.09 Procedure and treatment not carried out because of other contraindication; R03.0 Elevated blood-pressure reading, without diagnosis of hypertension
CPT/HCPCS: 86900; 86901; 86850; 86920; 36415; 76380; J1170

== ENCOUNTER → 2021-03-21 | Outpatient (CLI) | payer BC ==
--- NOTE | 2021-03-21 15:16 | XR ---
EXAMINATION TYPE: XR chest 2V DATE OF EXAM: 03/21/2021 COMPARISON: Chest x-ray 04/28/2020 HISTORY: Shortness of breath and cough TECHNIQUE: Frontal and lateral views of the chest are obtained. FINDINGS: There is no focal air space opacity, pleural effusion, or pneumothorax seen. The cardiac silhouette size is within normal limits. The osseous structures are intact. IMPRESSION: No acute cardiopulmonary process.
== END | disposition home or self-care (01) ==
LOC: RADXRMAIN 14:45
PROVIDERS: ATTEND Family Medicine
DX: R05.9 Cough, unspecified (principal); R06.02 Shortness of breath
CPT/HCPCS: 71046

== ENCOUNTER 2022-11-13 17:14 | Emergency (ER) | payer BC ==
[2022-11-13 17:34] VITALS: TEMP 97.8
[2022-11-13] MEDS ORDERED: ONDANSETRON 4 MG/2 ML VIAL IVP STA (18:10)
[2022-11-13] MEDS ORDERED: HYDROmorphone 1 MG/ML 1 ML SYRINGE IVP STA (18:10)
[2022-11-13] MEDS ORDERED: SODIUM CHLORIDE 0.9% 1,000 ML IV STA (18:10)
--- NOTE | 2022-11-13 18:11 | ED ---
Back Pain HPI - General Chief Complaint: Back Pain/Injury Stated Complaint: Lower Back, history of Kidney Disease Time Seen by Provider: 11/13/22 18:10 Source: patient, RN notes reviewed, old records reviewed Limitations: no limitations - History of Present Illness Initial Comments: This is a 47-year-old male to the emergency department for evaluation. Patient complaining severe back pain severe back pain today with no traumatic injury noted. Patient has no loss of bowel or bladder nausea no vomiting. No other complaints. Patient's pain is left lower back wrapping around his abdomen. Severe back pain currently. No travel history no sick contacts patient does have prior similar back pain MD Complaint: back pain, other (kidney stone) -: hour(s) Similar Symptoms Previously: Yes Place: home Radiation: abdomen Severity: moderate, severe Severity scale (1-10): 4 Consistency: constant Improves With: none Worsens With: none Associated Symptoms: denies other symptoms Treatments Prior to Arrival: other (0) - Related Data Home Medications Medication Instructions Recorded Confirmed Atorvastatin Calcium [Lipitor] 20 mg PO HS 02/27/17 01/19/21 Labetalol HCl [Trandate] 300 mg PO BID 02/27/17 01/19/21 amLODIPine BESYLATE [Norvasc] 5 mg PO DAILY 02/27/17 01/19/21 Ergocalciferol [Vitamin D2] 50,000 unit PO WEEKLY 01/08/19 01/19/21 Furosemide [Lasix] 40 mg PO DIRECTED 01/08/19 01/19/21 Omeprazole 40 mg PO BID 03/12/19 01/19/21 Albuterol Sulfate [Proair Hfa] 1 - 2 puff INHALATION RT-Q6H PRN 04/28/20 01/19/21 Loratadine [Claritin] 10 mg PO DAILY PRN 09/27/20 01/19/21 mycophenolate mofetiL [Cellcept] 500 mg PO DAILY 09/27/20 01/19/21 Previous Rx's Medication Instructions Recorded Albuterol Inhaler [Ventolin Hfa 2 puff INHALATION Q4HR PRN #1 04/28/20 Inhaler] inhaler Allergies Allergy/AdvReac Type Severity Reaction Status Date / Time bacitracin Allergy Unknown Verified 11/13/22 17:34 [From Neosporin ([id number])] neomycin Allergy Unknown Verified 11/13/22 17:34 [From Neosporin ([id number])] polymyxin B Allergy Unknown Verified 11/13/22 17:34 [From Neosporin ([id number])] Review of Systems ROS Statement: Those systems with pertinent positive or pertinent negative responses have been documented in the HPI. ROS Other: All systems not noted in ROS Statement are negative. Past Medical History Past Medical History: Dementia, GERD/Reflux, Hyperlipidemia, Hypertension, Renal Disease Additional Past Medical History / Comment(s): Nephrotic Syndrome since 2007. Hx Bronchitis,URI, has possible allergies. Umbilical hernia currently. Edema ankles, feet. History of Any Multi-Drug Resistant Organisms: None Reported Past Surgical History: No Surgical Hx Reported Additional Past Surgical History / Comment(s): Biopsy kidneys. Colonoscopy, EGD, hernia repair, cataract surgery, retina repair, retina repair again with banding. Past Anesthesia/Blood Transfusion Reactions: Motion Sickness Past Psychological History: Anxiety Smoking Status: Never smoker Past Alcohol Use History: None Reported Past Drug Use History: None Reported - Past Family History Mother Family Medical History: No Reported History General Exam Limitations: no limitations General appearance: alert, in no apparent distress, anxious Head exam: Present: atraumatic, normocephalic, normal inspection Eye exam: Present: normal appearance, PERRL, EOMI. Absent: scleral icterus, conjunctival injection, periorbital swelling ENT exam: Present: normal exam, mucous membranes moist Neck exam: Present: normal inspection. Absent: tenderness, meningismus, lymphadenopathy Respiratory exam: Present: normal lung sounds bilaterally. Absent: respiratory distress, wheezes, rales, rhonchi, stridor Cardiovascular Exam: Present: regular rate, normal rhythm, normal heart sounds. Absent: systolic murmur, diastolic murmur, rubs, gallop, clicks GI/Abdominal exam: Present: soft, normal bowel sounds. Absent: distended, tenderness, guarding, rebound, rigid Extremities exam: Present: normal inspection, full ROM, normal capillary refill. Absent: tenderness, pedal edema, joint swelling, calf tenderness Back exam: Present: normal inspection Neurological exam: Present: alert, oriented X3, CN II-XII intact Psychiatric exam: Present: normal affect, normal mood Skin exam: Present: warm, dry, intact, normal color. Absent: rash Course Vital Signs 11/13/22 11/13/22 11/13/22 17:31 17:54 19:31 Temperature 97.8 F 97.8 F Pulse Rate 89 89 85 Respiratory 18 20 18 Rate Blood Pressure 142/75 148/98 143/64 O2 Sat by Pulse 97 98 94 L Oximetry - Reevaluation(s) Reevaluation #1: 11/13/22 19:34 Medical records reviewed Reevaluation #2: 11/13/22 19:34 Patient symptoms are improved pain is controlled Reevaluation #3: 11/13/22 19:34 Patient informed results questions answered Reevaluation #4: 11/13/22 19:34 Was pt. sent in by a medical professional or institution? @ -no Did you speak to anyone other than the patient for history? @ -no Did you review nursing and triage notes? @ -agree Were old charts reviewed? @ -yes Differential Diagnosis? @ -prior EKG interpreted by me (3pts min.)? @ -no X-rays interpreted by me (1pt min.)? @ -no CT interpreted by me (1pt min.)? @ -yes U/S interpreted by me (1pt. min.)? @ -no What testing was considered but not performed? (CT, X-rays, U/S, labs)? Why? @ -no What meds were considered but not given? Why? @ -no Did you discuss the management of the patient with other professionals? @ -no Did you reconcile home meds? @ -no Was smoking cessation discussed for >3mins.? @ -no Was critical care preformed (if so, how long)? @ -no Were there social determinants of health that impacted care today? How? (Homelessness, low income, unemployed, alcoholism, drug addiction, transportation, low edu. Level, literacy, decrease access to med. care, half-way, rehab)? @ -no Was there de-escalation of care discussed even if they declined? (Discuss DNR or withdrawal of care, Hospice)? @ -no What co-morbidities impacted this encounter? (DM, HTN, Smoking, COPD, CAD, Cancer, CVA, Hep., AIDS, mental health diagnosis, sleep apnea, morbid obesity)? @ -none Was patient admitted / discharged? @ -47 male to the emergency department for evaluation of pain severe flank pain left-sided flank pain and groin. Patient does have left kidney stone pain is improved, controlled. Patient states that he does feels improved and can be discharged home Discharge Undiagnosed new problem with uncertain prognosis? @ -no Drug Therapy requiring intensive monitoring for toxicity (Heparin, Nitro, Insulin, Cardizem)? @ -no Were any procedures done? @ -no Diagnosis/symptom? @ -Kidney stone Acute, or Chronic, or Acute on Chronic? @ -acute Uncomplicated (without systemic symptoms) or Complicated (systemic symptoms)? @ -complicated Side effects of treatment? @ -no Exacerbation, Progression, or Severe Exacerbation] @ -no Poses a threat to life or bodily function? @ -no Reevaluation #5: 11/13/22 19:34 Differential Abdominal Pain Men: Appendicitis, cholecystitis, diverticulosis, ischemic bowel, pancreatitis, hepatitis, UTI, gastroenteritis, AAA, incarcerated hernia, bowel obstruction, constipation, inflammatory bowel, hepatitis, peptic ulcer disease, splenic infarction, perforated viscus, testicular torsion, this is not meant to be an all-inclusive list Medical Decision Making - Medical Decision Making 47 male to the emergency department for evaluation of pain severe flank pain left-sided flank pain and groin. Patient does have left kidney stone pain is improved, controlled. Patient states that he does feels improved and can be discharged home - Lab Data Result diagrams: 11/13/22 18:15 11/13/22 18:15 Lab Results 11/13/22 11/13/22 Range/Units 18:15 18:15 WBC 9.3 (3.8-10.6) k/uL RBC 4.49 (4.30-5.90) m/uL Hgb 13.1 (13.0-17.5) gm/dL Hct 38.7 L (39.0-53.0) % MCV 86.0 (80.0-100.0) fL MCH 29.2 (25.0-35.0) pg MCHC 33.9 (31.0-37.0) g/dL RDW 13.3 (11.5-15.5) % Plt Count 239 (150-450) k/uL MPV 8.2 Neutrophils % 78 % Lymphocytes % 11 % Monocytes % 6 % Eosinophils % 3 % Basophils % 0 % Neutrophils # 7.3 (1.3-7.7) k/uL Lymphocytes # 1.1 (1.0-4.8) k/uL Monocytes # 0.6 (0-1.0) k/uL Eosinophils # 0.2 (0-0.7) k/uL Basophils # 0.0 (0-0.2) k/uL Sodium 137 (137-145) mmol/L Potassium 4.5 (3.5-5.1) mmol/L Chloride 109 H (98-107) mmol/L Carbon Dioxide 19 L (22-30) mmol/L Anion Gap 9 mmol/L BUN 24 H (9-20) mg/dL Creatinine 2.28 H (0.66-1.25) mg/dL Est GFR (CKD-EPI)AfAm 38 (>60 ml/min/1.73 sqM) Est GFR (CKD-EPI)NonAf 33 (>60 ml/min/1.73 sqM) Glucose 121 H (74-99) mg/dL Calcium 9.3 (8.4-10.2) mg/dL Total Bilirubin 0.5 (0.2-1.3) mg/dL AST 23 (17-59) U/L ALT 19 (4-49) U/L Alkaline Phosphatase 124 (38-126) U/L Total Protein 7.4 (6.3-8.2) g/dL Albumin 4.0 (3.5-5.0) g/dL Amylase 69 (30-110) U/L Lipase 119 (23-300) U/L - Radiology Data Radiology results: report reviewed (CT of the abdomen and pelvis positive for kidney stone 4 mm), image reviewed Disposition Clinical Impression: Left ureteral stone, Thoracic back pain Disposition: HOME SELF-CARE Condition: Good Instructions (If sedation given, give patient instructions): Kidney Stones (ED) Is patient prescribed a controlled substance at d/c from ED?: No Referrals: Jose Quinones DO [Primary Care Provider] - 1-2 days Baljinder Ness MD [STAFF PHYSICIAN] - 1-2 days Time of Disposition: 19:35
[2022-11-13 18:45] LABS: ALT 19 U/L (4-49); AST 23 U/L (17-59); African American GFR (CKD) 38 (>60 ml/min/1.73 sqM); Alkaline Phosphatase 124 U/L (38-126); Amylase 69 U/L (30-110); Anion Gap 9 mmol/L; Blood Urea Nitrogen 24 mg/dL (9-20); Calcium 9.3 mg/dL (8.4-10.2); Carbon Dioxide 19 mmol/L (22-30); Chloride 109 mmol/L (98-107); Glucose 121 mg/dL (74-99); Lipase 119 U/L (23-300); Non-African American GFR(CKD) 33 (>60 ml/min/1.73 sqM); Potassium 4.5 mmol/L (3.5-5.1); Sodium 137 mmol/L (137-145); Total Bilirubin 0.5 mg/dL (0.2-1.3); Total Protein 7.4 g/dL (6.3-8.2)
[2022-11-13 18:50] LABS: Basophils % (A) 0 %; Eosinophils # (A) 0.2 k/uL (0-0.7); Eosinophils % (A) 3 %; HCT 38.7 % (39.0-53.0); HGB 13.1 gm/dL (13.0-17.5); Lymphocytes # (A) 1.1 k/uL (1.0-4.8); Lymphocytes % (A) 11 %; MCH 29.2 pg (25.0-35.0); MCHC 33.9 g/dL (31.0-37.0); Mean Platelet Volume 8.2; Monocytes # (A) 0.6 k/uL (0-1.0); Monocytes % (A) 6 %; Neutrophils # (A) 7.3 k/uL (1.3-7.7); Neutrophils % (A) 78 %; Platelet Count 239 k/uL (150-450); RBC 4.49 m/uL (4.30-5.90); RDW 13.3 % (11.5-15.5); WBC 9.3 k/uL (3.8-10.6)
--- NOTE | 2022-11-13 19:17 | CT ---
EXAMINATION TYPE: CT abdomen pelvis wo con DATE OF EXAM: 11/13/2022 COMPARISON: None INDICATION: BILATERAL FLANK PAIN, H/O RENAL DISEASE DLP: 1147 mGycm, Automated exposure control for dose reduction was used. CONTRAST: 0 mL of Isovue 300. Study performed without Oral Contrast TECHNIQUE: Axial images were obtained from above the diaphragm to the pubic rami in the axial plane a t 5 mm thick sections. Reconstructed images are reviewed on the computer in the coronal plane. FINDINGS: Limited CT sections are obtained the lung bases. The lung bases are clear. CT ABDOMEN: Liver: There is a subtle 4.7 cm hypodensity within the upper right lobe liver near the diaphragm. Thi s is nonspecific although neoplasm should be considered highly differential. The remainder the liver appears unremarkable. Spleen: Normal Pancreas: Normal Adrenal glands: The adrenal glands are normal. Gallbladder: Normal Kidneys: Some mild left perinephric stranding is present. There is mild left hydronephrosis and hydro ureter. Hydroureter extends to the distal ureter. Within the pelvis there is a nonobstructing 0.4 cm calcification in the distal ureter above the left ureterovesical junction. No masses are evident. No cysts are present. No renal stones are identified Aorta: Normal Inferior vena cava: Normal. CT PELVIS: Loops of bowel within the abdomen and pelvis are normal. There is some minimal inflammatory change at the distal descending colon. No adjacent diverticuli are present. Correlate for mild colitis. Exampl e image series 201 image 90 There are loops of bowel which are incompletely distended or lack oral contrast limiting their evaluation. Appendix: There is a calcification in the distal appendix compatible with an appendicolith. No dilate d appendix or inflammatory changes adjacent are evident. Urinary bladder: Normal. There may be a 1.4 cm diverticulum in the posterior right urinary bladder. Genitourinary structures: Prostate is somewhat prominent Osseous structures: No suspicious lytic or sclerotic lesions. Bilateral inguinal fat-containing hernias are present. There is some increased density in the structu res and some incarcerated fat should be considered. Correlate with patient's symptoms. IMPRESSIONS: 1. 0.4 cm obstructing distal left ureteral stone above the left ureterovesical junction. 2. Mild left hydronephrosis and hydroureter. 3. There is a 4.7 cm subtle hypodensity within right lobe liver. Workup for neoplasm is recommended. 4. Minimal inflammatory changes adjacent to the distal descending colon. A mild colitis could be con sidered. 5. Appendicolith. 6. 1.4 cm urinary bladder diverticulum in the posterior lateral right urinary bladder. 7. Bilateral fat-containing inguinal hernias is slight increased density, incarcerated fat should be considered and correlation with the patient's symptoms.
[2022-11-13 19:33] VITALS: BP 143/64; PULSE 85; RESP 18
[2022-11-13] MEDS ORDERED: ONDANSETRON 4 MG ODT STARTER PACK 2 TAB BTL PO STA (19:33)
[2022-11-13] MEDS ORDERED: TAMSULOSIN 0.4 MG CAP.ER.24H PO STA (19:33)
[2022-11-13] MEDS ORDERED: ACET/COD 300 MG/30 MG STARTER PACK 6 TAB BTL PO STA (19:33)
[2022-11-13] MEDS ORDERED: MORPHINE SULFATE 4 MG/ML SYRINGE IVP STA (19:36)
== END 2022-11-13 20:07 | disposition home or self-care (01) ==
LOC: EC 17:14
DX: N13.2 Hydronephrosis with renal and ureteral calculous obstruction (principal); M54.6 Pain in thoracic spine; I10 Essential (primary) hypertension; E78.5 Hyperlipidemia, unspecified; K21.9 Gastro-esophageal reflux disease without esophagitis; Z79.899 Other long term (current) drug therapy; Z88.1 Allergy status to other antibiotic agents
CPT/HCPCS: 36415; 80053; 82150; 83690; 85025; 74176; 99284; 96374; 96375 ×2; 96361; J2270; J2405; J1170; S0119

== ENCOUNTER → 2022-12-09 | Outpatient (CLI) | payer BC ==
--- NOTE | 2022-12-09 20:54 | MR ---
EXAMINATION TYPE: MR liver wo con DATE OF EXAM: 12/09/2022 8:41 PM INDICATION: Patient age:Male; 47 years old; Reason for study: K76.89 OTHER SPECIFIED DISEASES OF LIVER; PHH. Nodule on liver COMPARISON: CT scan abdomen from 11/13/2022 TECHNIQUE: Multiplanar multi-sequence imaging was performed without contrast. Noncontrast imaging on ly performed. IV Contrast: None FINDINGS: LOWER CHEST: No gross irregularity. ABDOMEN Liver: There are at least heterogenous lesions seen within the liver. The largest measuring up to 5.7 x 4.6. The segment 4A and more inferiorly in segment measuring 2.7 cm. Gallbladder and Bile ducts: The gallbladder is nondistended. No ductal dilation. Pancreas: Unremarkable. Spleen: Small splenule present. Adrenal glands: Unremarkable. Kidneys: Right renal cyst. No obstructive uropathy. Intrinsic high high T1 signal cysts bilaterally c ompatible with hemorrhagic/proteinaceous cysts. Resolution of left prior hydronephrosis. Stomach and Bowel: There is a small hiatal hernia present. Peritoneum: No evidence of pneumoperitoneum or free fluid. Vasculature: Unremarkable. No aortic aneurysm. Musculoskeletal: The osseous structures appear intact. Lymph Nodes: No gross evidence for lymphadenopathy. Abdominal wall: Unremarkable. IMPRESSION: 1. Limited noncontrast MRI, There are 2 masses within the liver suspicious for malignancy. Tissue sa mpling recommended for definitive diagnosis. Findings could represent metastatic disease. Further wor kup recommended. 2. Small hiatal hernia.
== END | disposition home or self-care (01) ==
LOC: RADMRIMAIN 19:58
PROVIDERS: ATTEND Family Medicine
DX: K76.89 Other specified diseases of liver (principal); K44.9 Diaphragmatic hernia without obstruction or gangrene
CPT/HCPCS: 74181

== ENCOUNTER → 2022-12-12 | Outpatient (CLI) | payer BC ==
--- NOTE | 2022-12-12 12:00 | XR ---
EXAMINATION TYPE: XR KUB DATE OF EXAM: 12/12/2022 COMPARISON: CT scan 11/13/2022 HISTORY: Left ureteral stone TECHNIQUE: One view abdominal series FINDINGS: The osseous structures are intact. The bowel gas pattern is nonspecific. There is a 2 mm left hemipe lvic. There is a sclerotic bone island overlying the left femoral head. There is bilateral hip arthropathy correlate for femoral acetabular impingement. 2 mm calcification in the left hemipelvis appears to correspond to CT calcification seen within the d istal left ureter and may have migrated a couple centimeters now near the UVJ. Additional other calcifications noted within the pelvis are seen to lie outside the genitourinary sys tem by recent CT scan. By standard x-ray the renal outlines demonstrate no sizable additional calcifications, although there was a punctate lower pole right renal calculus by recent CT. IMPRESSION: 1. The 2 mm distal left ureteral calculus appears to have migrated a couple centimeters now near the left UVJ..
== END | disposition home or self-care (01) ==
LOC: RADXRMAIN 11:07
PROVIDERS: ATTEND Urology
DX: N20.1 Calculus of ureter (principal)
CPT/HCPCS: 74018

== ENCOUNTER 2022-12-17 06:50 | Day surgery (SDC) | payer BC ==
[2022-12-17] MEDS ORDERED: LACTATED RINGERS 1,000 ML IV ONE (07:31)
[2022-12-17 07:49] VITALS: TEMP 97.4
[2022-12-17] MEDS ORDERED: PROPOFOL 10 MG/ML 20 ML VIAL IV ONE (07:57)
[2022-12-17] MEDS ORDERED: LIDOCAINE 2% INJ 20 MG/ML (2 ML VIAL) ONE (07:57)
--- NOTE | 2022-12-17 08:34 | P.PCN ---
Date of Procedure: 12/17/22 Procedure(s) Performed: Brief history: Patient is a pleasant 47-year-old white male scheduled for an elective upper endoscopy as well as colonoscopy as a part of evaluation of abnormal CAT scan of abdomen that revealed liver masses.. He recently had a CT of abdomen and pelvis done that showed heterogeneous mass in the liver measuring 6.7 cm in size suspicious for malignancy. He scheduled for ultrasound guided liver biopsy next week. Procedure performed: Esophagogastroduodenoscopy with biopsy Colonoscopy with biopsy, snare polypectomy and tattooing with Deedee ink Preoperative diagnosis: Abdominal CAT scan of abdomen revealed liver suspicious for metastasis Anesthesia: MAC Procedure: After informed consent was obtained from the patient was brought into the endoscopy unit and IV sedation was administered by anesthesia under continuous monitoring. Initially upper endoscopy was done. The Olympus GF 160 video endoscope was inserted inserted into the mouth and esophagus intubated without any difficulty and was gradually advanced into the stomach and duodenum and carefully examined. The bulb and second part of the duodenum appeared normal. The scope was then withdrawn into the stomach adequately insufflated with air and upon careful examination the antrum had mild gastritis. Biopsies were done from this area. The area. Mucosa of the body, cardia and fundus appeared normal. The scope was then withdrawn into the esophagus. The GE junction was located at 40 cm to the incisors. Small hiatal hernia noted. It appeared regular with no erythema erosions or ulcerations. Rest of the esophagus appeared normal. Patient tolerated the procedure well. At this time the patient continued to remain sedation. Initial digital rectal examination was normal. Olympus CF 160 video colonoscope was then inserted into the rectum and gradually advanced to the descending colon where there was a near obstructing circumferential mass identified at 40 cm from the anal verge. I could not advance the scope at this area. The scope was removed and a pediatric colonoscope was then introduced into the rectum and gradually advanced into the cecum with gentle manipulation without any difficulty. Careful examination was performed as the scope was gradually being withdrawn. The prep was excellent. The cecum appeared normal. Ascending colon there was a 5 mm polyp removed by snare polypectomy. Rest of the, ascending colon, transverse colon, appeared normal. In the descending colon there were 2 circumferential masses identified the first one located at 50 cm from the anal verge and the second one located at 45 cm from the anal verge both of them the circumferential significant luminal narrowing. Biopsies were done from both the masses followed by tattooing with Deedee ink of both lesions. In the sigmoid colon at 30 cm from the anal was there were 2 polyps measuring 1 cm and 1.5 cm in size both of which were removed by snare polypectomy. the rectum appeared normal. Retroflexion was performed in the rectum and no lesions were noted. Patient tolerated the procedure well. Impression: 1. Upper endoscopy revealed mild antral gastritis, small hiatal hernia and mild esophagitis 2. Colonoscopy revealed: a) circumferential near obstructing mass involving the descending colon at 50 cm from anal verge status post biopsies followed by tattooing with Deedee ink b) circumferential mass involving the distal descending colon at 45 cm from anal verge status post multiple biopsies followed by tattooing with Deedee ink c) 5 mm ascending colon polyp status post polypectomy d) 1 cm and 1.5 cm; polyp status post polypectomy Recommendations: Findings of this examination were discussed with the patient as well as his family. He was advised to follow with the biopsy results. He'll be seen in office early next week.
[2022-12-17 08:55] VITALS: BP 126/80; PULSE 71; RESP 15
== END 2022-12-17 09:30 | disposition home or self-care (01) ==
LOC: ORWHC2ENDO 06:50
PROVIDERS: ATTEND Internal Medicine Gastroenterology
DX: C18.6 Malignant neoplasm of descending colon (principal); K29.50 Unspecified chronic gastritis without bleeding; K44.9 Diaphragmatic hernia without obstruction or gangrene; D12.2 Benign neoplasm of ascending colon; D12.4 Benign neoplasm of descending colon; D12.5 Benign neoplasm of sigmoid colon; E78.5 Hyperlipidemia, unspecified; J45.909 Unspecified asthma, uncomplicated; I12.9 Hypertensive chronic kidney disease with stage 1 through stage 4 chronic kidney disease, or unspecified chronic kidney disease; N18.9 Chronic kidney disease, unspecified; M54.51 Vertebrogenic low back pain; K21.9 Gastro-esophageal reflux disease without esophagitis; Z79.51 Long term (current) use of inhaled steroids; Z87.19 Personal history of other diseases of the digestive system; Z79.899 Other long term (current) drug therapy
CPT/HCPCS: 45380; 45381; 88305; 45385; 43239; 44404; J2704; J2001

== ENCOUNTER → 2023-01-07 | Outpatient (CLI) | payer BC ==
--- NOTE | 2023-01-07 08:53 | CT ---
EXAMINATION TYPE: CT brain wo con DATE OF EXAM: 01/07/2023 COMPARISON: None HISTORY: Right sided occipital lobe headaches, recent diagnosis of colon cancer CT DLP: 1110.[address] of the brain was performed. The ventricles, basal cisterns and sulci overlying the cerebral convexities demonstrate a normal appe arance. There is no evidence for intracranial hemorrhage or sulcal effacement. No mass effects are seen. Osseous calvarium is intact. If symptoms persist consider MRI as clinically warranted. IMPRESSION: 1. No acute intracranial process is seen at this time.
== END | disposition home or self-care (01) ==
LOC: RADCTMAIN 08:15
PROVIDERS: ATTEND Internal Medicine Hematology & Oncology
DX: C18.6 Malignant neoplasm of descending colon (principal); I10 Essential (primary) hypertension; Z71.3 Dietary counseling and surveillance; Z87.441 Personal history of nephrotic syndrome
CPT/HCPCS: 70450

== ENCOUNTER → 2023-02-18 | Outpatient (CLI) | payer BC ==
--- NOTE | 2023-02-18 22:03 | CA ---
Transthoracic Echo Report Name: Jose Sher Age: 47 Gender: M : 1975 Exam Date: 02/18/2023 09:04 Exam Location: [facility] Ht (in): 76 Wt (lb): 250 Ordering Physician: Jose L Garcia MD Attending/Referring Phys: Hydrographic Engineer Caitlin Erickson RDCS Procedure CPT: Indications: Z01.818 Pre-chemo Cardiac Hx: Technical Quality: Fair Contrast 1: Total Dose (mL): Contrast 2: Total Dose (mL): MEASUREMENTS (Male / Female) Normal Values 2D ECHO LV Diastolic Diameter PLAX 4.4 cm 4.2 - 5.9 / 3.9 - 5.3 cm LV Systolic Diameter PLAX 2.0 cm IVS Diastolic Thickness 1.7 cm 0.6 - 1.0 / 0.6 - 0.9 cm LVPW Diastolic Thickness 1.4 cm 0.6 - 1.0 / 0.6 - 0.9 cm LV Relative Wall Thickness 0.7 RV Internal Dim ED PLAX 3.6 cm LA Volume 52.8 cm??? 18 - 58 / 22 - 52 cm??? LA Volume Index 21.2 cm???/m??? 16 - 28 cm???/m??? M-MODE Aortic Root Diameter MM 3.0 cm LA Systolic Diameter MM 4.6 cm LA Ao Ratio MM 1.5 AV Cusp Separation MM 2.1 cm DOPPLER AV Peak Velocity 138.8 cm/s AV Peak Gradient 7.7 mmHg AV Mean Velocity 118.3 cm/s AV Mean Gradient 5.7 mmHg AV Velocity Time Integral 25.7 cm AI Peak Velocity 222.5 cm/s AI Peak Gradient 19.8 mmHg AI Pressure Half Time 206.8 ms LVOT Peak Velocity 116.6 cm/s LVOT Peak Gradient 5.4 mmHg LVOT Velocity Time Integral 23.0 cm MV Area PHT 6.9 cm??? Mitral E Point Velocity 51.2 cm/s Mitral A Point Velocity 78.7 cm/s Mitral E to A Ratio 0.7 MV Deceleration Time 109.7 ms MV E' Velocity 5.7 cm/s Mitral E to MV E' Ratio 9.0 FINDINGS Left Ventricle Moderately increased left ventricular wall thickness. Left ventricular cavity size normal. Normal left ventricular systolic function with no obvious regional wall motion abnormalities. Left ventricular ejection fraction is estimated at 55-60 %. Right Ventricle Mild right ventricular dilatation. Right ventricular systolic pressure within normal limits. Right Atrium Normal right atrial size. Left Atrium Normal left atrial size. Mitral Valve Structurally normal mitral valve. No mitral stenosis, regurgitation or prolapse. Aortic Valve Trileaflet aortic valve. No aortic stenosis. Trace aortic regurgitation. Tricuspid Valve Structurally normal tricuspid valve. Trace tricuspid regurgitation. Pulmonic Valve Trace pulmonic regurgitation. Pericardium No pericardial effusion. Aorta Normal size aortic root and proximal ascending aorta. CONCLUSIONS Left ventricular ejection fraction is estimated at 55-60 %. Moderately increased left ventricular wall thickness. No obvious regional wall motion abnormalities. Global longitudinal strain estimated at -12.9%. (Normal is -20%) No significant valvular disease Previewed by: Dr Felix Mixon (Electronically Signed) Final Date: 18 February 2023 22:01
== END | disposition home or self-care (01) ==
LOC: RADECHMAIN 08:52
PROVIDERS: ATTEND Internal Medicine Hematology & Oncology
DX: Z01.818 Encounter for other preprocedural examination (principal); C18.6 Malignant neoplasm of descending colon; I10 Essential (primary) hypertension; Z71.3 Dietary counseling and surveillance; Z87.441 Personal history of nephrotic syndrome
CPT/HCPCS: 93306

== ENCOUNTER 2023-03-02 12:15 | Emergency (ER) | payer BC ==
[2023-03-02 12:33] VITALS: TEMP 98.1
[2023-03-02] MEDS ORDERED: SODIUM CHLORIDE 0.9% 500 ML 500 ML IV STA (12:34)
[2023-03-02] MEDS ORDERED: ONDANSETRON 4 MG/2 ML VIAL IVP STA (12:34)
[2023-03-02] MEDS ORDERED: DICYCLOMINE 10 MG/ML 2 ML AMP IM STA (12:34)
[2023-03-02] MEDS ORDERED: PANTOPRAZOLE 40 MG/10 ML VIAL IVP STA (12:34)
--- NOTE | 2023-03-02 13:27 | ED ---
General Adult HPI - General Chief complaint: Abdominal Pain Stated complaint: lower abdo pain Time Seen by Provider: 03/02/23 12:22 Source: patient, RN notes reviewed, old records reviewed Mode of arrival: ambulatory Limitations: no limitations - History of Present Illness Initial comments: Patient is a 47-year-old male presents in the department complaining of abdominal pain. Is being treated for colon cancer. I evaluated the patient a few weeks ago when he came in for vasospasm and cardiomyopathy secondary to his chemotherapy medication. He has since stopped chemo for the time being and has been progressing well at home. There is a plan for eventual chemo but he has been off chemo for at least 2 weeks. However since last night he has been endorsing nonspecific abdominal crampy pain that comes and goes with worsening gas. Denies any flatus. Denies any bowel movements. States he had 2 [employer] sandwiches last night and thought that that is contributing to it. No history of small bowel obstructions. Has a left inguinal hernia repair otherwise no significant abdominal surgeries. Denies any other symptoms including denying chest pain, shortness breath, fevers, chills, cough. Presents for further evaluation at this time. Has no urinary complaints at this time. Contacted his oncologist recommended he come for evaluation.States the pain is crampy and primarily in the bilateral lower quadrants. Denies any urinary complaints. - Related Data Home Medications Medication Instructions Recorded Confirmed Atorvastatin Calcium [Lipitor] 20 mg PO DAILY 02/27/17 02/06/23 Omeprazole 40 mg PO DAILY 03/12/19 02/06/23 Tacrolimus [Prograf] 1 mg PO DIRECTED 12/12/22 02/06/23 Ergocalciferol (Vitamin D2) 1,250 mcg PO DIRECTED 02/06/23 02/06/23 [Drisdol (50,000 Iu)] Hydrocortisone Cream 1 applic TOPICAL BID PRN 02/06/23 02/06/23 [Hydrocortisone 2.5% Cream] Lidocaine-Prilocaine Cream [Emla 1 applic TOPICAL DIRECTED PRN 02/06/23 02/06/23 Cream 2.5%/2.5%] Previous Rx's Medication Instructions Recorded Acetaminophen Tab [Tylenol] 650 mg PO Q6HR PRN tab 02/09/23 Dapagliflozin Propanediol [Farxiga] 5 mg PO DAILY #30 tab 02/09/23 Isosorbide Mononitrate ER [Imdur] 30 mg PO DAILY #30 tab 02/09/23 Metoprolol Tartrate [Lopressor] 25 mg PO BID #60 tab 02/09/23 Dicyclomine [Bentyl] 10 mg PO TID PRN 7 Days #21 capsule 03/02/23 Allergies Allergy/AdvReac Type Severity Reaction Status Date / Time No Known Allergies Allergy Verified 03/02/23 12:19 Review of Systems ROS Statement: Those systems with pertinent positive or pertinent negative responses have been documented in the HPI. Review of Systems: CONST: Denies fever EYES: Denies blurry vision ENT: Denies nasal congestion C/V: Denies Chest pain RESP: Denies shortness of breath GI: Endorses intermittent crampy abdominal pain : Denies dysuria SKIN: Denies rash. MSK: Denies joint pain. NEURO: Denies headache ROS Other: All systems not noted in ROS Statement are negative. Past Medical History Past Medical History: Cancer, Dementia, GERD/Reflux, Hyperlipidemia, Hypertension, Renal Disease Additional Past Medical History / Comment(s): Nephrotic Syndrome since 2007. Hx Bronchitis,URI, has possible allergies. Umbilical hernia currently. Edema ankles, feet. Colon cancer-recent dx History of Any Multi-Drug Resistant Organisms: None Reported Past Surgical History: No Surgical Hx Reported Additional Past Surgical History / Comment(s): Biopsy kidneys, Colonoscopy, EGD, hernia repair, cataract surgery, retina repair, retina repair again with banding. right chest wall port placement. Past Anesthesia/Blood Transfusion Reactions: Motion Sickness Additional Past Anesthesia/Blood Transfusion Reaction / Comment(s): Slow to wake. Pt has never received blood. Past Psychological History: Anxiety Smoking Status: Never smoker Past Alcohol Use History: None Reported Past Drug Use History: None Reported - Past Family History Mother Family Medical History: No Reported History Additional Family Medical History / Comment(s): Pacemaker. General Exam - General Exam Comments Initial Comments: General: Appears in mild distress. HEAD: Normal with no signs of head trauma. EYES: PERRLA, EOMI, conjunctiva normal, no discharge. ENT: Hearing grossly intact, normal oropharynx. RESPIRATORY: Clear breath sounds bilaterally. No wheezes, rales, or rhonchi. C/V: Regular rate and rhythm. S1 and S2 auscultated, no edema, peripheral pulses 2+ and intact throughout ABD: Abdomen is soft, nondistended. No significant obvious focal tenderness palpation. Seems to be in the lower quadrants where he is pointing is not a significant finding on exam. No guarding. No peritoneal signs. No rebound tenderness. EXT: Normal range of motion, no obvious deformity SKIN: No rashes or lesions observed on exposed skin. NEURO: Alert and oriented 4. Limitations: no limitations Course Vital Signs 03/02/23 03/02/23 12:17 15:52 Temperature 98.1 F Pulse Rate 107 H 93 Respiratory 22 18 Rate Blood Pressure 159/103 170/107 O2 Sat by Pulse 97 95 Oximetry Medical Decision Making - Medical Decision Making Was pt. sent in by a medical professional or institution (, PA, GLEASON OPERATOR, urgent care, hospital, or longterm...) When possible be specific @ -No Did you speak to anyone other than the patient for history (EMS, parent, family, police, friend...)? What history was obtained from this source @ -No Did you review nursing and triage notes (agree or disagree)? Why? @ -I reviewed and agree with nursing and triage notes Were old charts reviewed (outside hosp., previous admission, EMS record, old EKG, old radiological studies, urgent care reports/EKG's, longterm records)? Report findings @ -Old charts reviewed Differential Diagnosis (chest pain, altered mental status, abdominal pain women, abdominal pain men, vaginal bleeding, weakness, fever, dyspnea, syncope, headache, dizziness, GI bleed, back pain, seizure, CVA, palpatations, mental health, musculoskeletal)? @ -Differential Abdominal Pain Men: Appendicitis, cholecystitis, diverticulosis, ischemic bowel, pancreatitis, hepatitis, UTI, gastroenteritis, AAA, incarcerated hernia, bowel obstruction, constipation, inflammatory bowel, hepatitis, peptic ulcer disease, splenic infarction, perforated viscus, testicular torsion, this is not meant to be an all-inclusive list EKG interpreted by me (3pts min.). @ -As above X-rays interpreted by me (1pt min.). @ -None done CT interpreted by me (1pt min.). @ -CT abdomen and pelvis reveals colitis. Colonic malignancy redemonstrated with known history of. U/S interpreted by me (1pt. min.). @ -None done What testing was considered but not performed or refused? (CT, X-rays, U/S, labs)? Why? @ -None What meds were considered but not given or refused? Why? @ -None Did you discuss the management of the patient with other professionals (professionals i.e. , PA, GLEASON OPERATOR, lab, RT, psych nurse, dialysis social worker, education program specialist, teacher, state wildlife officer, casework manager)? Give summary @ -No Was smoking cessation discussed for >3mins.? @ -No Was critical care preformed (if so, how long)? @ -No Were there social determinants of health that impacted care today? How? (Homelessness, low income, unemployed, alcoholism, drug addiction, transportation, low edu. Level, literacy, decrease access to med. care, penitentiary, rehab)? @ -No Was there de-escalation of care discussed even if they declined (Discuss DNR or withdrawal of care, Hospice)? DNR status @ -No What co-morbidities impacted this encounter? (DM, HTN, Smoking, COPD, CAD, Canc er, CVA, ARF, Chemo, Hep., AIDS, mental health diagnosis, sleep apnea, morbid obesity)? @ -None Was patient admitted / discharged? Hospital course, mention meds given and route, prescriptions, significant lab abnormalities, going to OR and other pertinent info. @ -Based on the patient's presentation and physical exam, I'm concerned for possible intra-abdominal process for his current symptoms. We will obtain abdominal laboratory studies, CT imaging without contrast. Screening EKG also be obtained. Patient recently treated with IV fluids, Protonix, Zofran, IM Bentyl. Patient was in agreement this plan. Vital signs within acceptable limits. EKG shows no signs of acute ischemia.CT imaging reveals colitis and colon cancer which is known. Patient's labs remarkable for chronically elevated creatinine. Remainder of labs unremarkable. On reevaluation, I discussed results with the patient. No evidence of small bowel obstruction. I did offer observation admission however patient requests discharge home and will return if symptoms worsen. Patient was in agreement this plan. Patient discharged from a starter pack of Tylenol 3's, Zofran, as well as a prescription of Bentyl. Strict return precautions discussed. Recommended clear liquid diet and bowel rest. I will provide the patient with a prescription for Bentyl. I instructed the patient to follow up with their PCP in the next 1-3 days. I explained that the patient should return to the emergency department if they experience any worsening symptoms. Strict return precautions were discussed with the patient. The patient expressed understanding of these instructions. I answered all questions that the patient had. The patient was discharged home in fair condition with their prescriptions and follow up information. Undiagnosed new problem with uncertain prognosis? @ -No Drug Therapy requiring intensive monitoring for toxicity (Heparin, Nitro, Insulin, Cardizem)? @ -No Were any procedures done? @ -No Diagnosis/symptom? @ -Colitis, abdominal pain Acute, or Chronic, or Acute on Chronic? @ -Acute Uncomplicated (without systemic symptoms) or Complicated (systemic symptoms)? @ -Complicated Side effects of treatment? @ -none Exacerbation, Progression, or Severe Exacerbation] @ -no Poses a threat to life or bodily function? @ -no Diagnosis/symptom? @ -Colon cancer Acute, or Chronic, or Acute on Chronic? @ -Acute on chronic Uncomplicated (without systemic symptoms) or Complicated (systemic symptoms)? @ -Complicated Side effects of treatment? @ -none Exacerbation, Progression, or Severe Exacerbation] @ -no Poses a threat to life or bodily function? @ -Yes - Lab Data Result diagrams: 03/02/23 13:08 03/02/23 13:08 Lab Results 03/02/23 03/02/23 03/02/23 Range/Units 13:08 13:08 13:08 WBC 9.6 (3.8-10.6) k/uL RBC 4.76 (4.30-5.90) m/uL Hgb 12.9 L (13.0-17.5) gm/dL Hct 39.5 (39.0-53.0) % MCV 83.0 (80.0-100.0) fL MCH 27.0 (25.0-35.0) pg MCHC 32.6 (31.0-37.0) g/dL RDW 14.0 (11.5-15.5) % Plt Count 217 (150-450) k/uL MPV 8.3 Neutrophils % 65 % Lymphocytes % 21 % Monocytes % 7 % Eosinophils % 4 % Basophils % 0 % Neutrophils # 6.2 (1.3-7.7) k/uL Lymphocytes # 2.0 (1.0-4.8) k/uL Monocytes # 0.7 (0-1.0) k/uL Eosinophils # 0.4 (0-0.7) k/uL Basophils # 0.0 (0-0.2) k/uL Hypochromasia Slight PT 10.1 (10.0-12.5) sec INR 0.9 (<1.2) APTT 22.2 (22.0-30.0) sec Sodium 141 (137-145) mmol/L Potassium 4.2 (3.5-5.1) mmol/L Chloride 105 (98-107) mmol/L Carbon Dioxide 25 (22-30) mmol/L Anion Gap 11 mmol/L BUN 20 (9-20) mg/dL Creatinine 1.77 H (0.66-1.25) mg/dL Est GFR (CKD-EPI)AfAm 51 (>60 ml/min/1.73 sqM) Est GFR (CKD-EPI)NonAf 44 (>60 ml/min/1.73 sqM) Glucose 108 H (74-99) mg/dL Plasma Lactic Acid Torrey (0.7-2.0) mmol/L Calcium 9.6 (8.4-10.2) mg/dL Total Bilirubin 0.5 (0.2-1.3) mg/dL AST 27 (17-59) U/L ALT 21 (4-49) U/L Alkaline Phosphatase 120 (38-126) U/L Total Protein 7.7 (6.3-8.2) g/dL Albumin 4.0 (3.5-5.0) g/dL Amylase 87 (30-110) U/L Lipase 145 (23-300) U/L Urine Color Urine Appearance (Clear) Urine pH (5.0-8.0) Ur Specific [place] (1.001-1.035) Urine Protein (Negative) Urine Glucose (UA) (Negative) Urine Ketones (Negative) Urine Blood (Negative) Urine Nitrite (Negative) Urine Bilirubin (Negative) Urine Urobilinogen (<2.0) mg/dL Ur Leukocyte Esterase (Negative) Urine WBC (0-5) /hpf Ur Squamous Epith Cells (0-4) /hpf Urine Mucus (None) /hpf 03/02/23 03/02/23 Range/Units 13:08 13:08 WBC (3.8-10.6) k/uL RBC (4.30-5.90) m/uL Hgb (13.0-17.5) gm/dL Hct (39.0-53.0) % MCV (80.0-100.0) fL MCH (25.0-35.0) pg MCHC (31.0-37.0) g/dL RDW (11.5-15.5) % Plt Count (150-450) k/uL MPV Neutrophils % % Lymphocytes % % Monocytes % % Eosinophils % % Basophils % % Neutrophils # (1.3-7.7) k/uL Lymphocytes # (1.0-4.8) k/uL Monocytes # (0-1.0) k/uL Eosinophils # (0-0.7) k/uL Basophils # (0-0.2) k/uL Hypochromasia PT (10.0-12.5) sec INR (<1.2) APTT (22.0-30.0) sec Sodium (137-145) mmol/L Potassium (3.5-5.1) mmol/L Chloride (98-107) mmol/L Carbon Dioxide (22-30) mmol/L Anion Gap mmol/L BUN (9-20) mg/dL Creatinine (0.66-1.25) mg/dL Est GFR (CKD-EPI)AfAm (>60 ml/min/1.73 sqM) Est GFR (CKD-EPI)NonAf (>60 ml/min/1.73 sqM) Glucose (74-99) mg/dL Plasma Lactic Acid Torrey 1.0 (0.7-2.0) mmol/L Calcium (8.4-10.2) mg/dL Total Bilirubin (0.2-1.3) mg/dL AST (17-59) U/L ALT (4-49) U/L Alkaline Phosphatase (38-126) U/L Total Protein (6.3-8.2) g/dL Albumin (3.5-5.0) g/dL Amylase (30-110) U/L Lipase (23-300) U/L Urine Color Light Yellow Urine Appearance Clear (Clear) Urine pH 7.0 (5.0-8.0) Ur Specific [place] 1.017 (1.001-1.035) Urine Protein 2+ H (Negative) Urine Glucose (UA) 3+ H (Negative) Urine Ketones Negative (Negative) Urine Blood Negative (Negative) Urine Nitrite Negative (Negative) Urine Bilirubin Negative (Negative) Urine Urobilinogen <2.0 (<2.0) mg/dL Ur Leukocyte Esterase Negative (Negative) Urine WBC <1 (0-5) /hpf Ur Squamous Epith Cells <1 (0-4) /hpf Urine Mucus Rare H (None) /hpf - EKG Data -: EKG Interpreted by Me EKG Comments: 12-lead Electrocardiogram Interpretation Note EKG was reviewed and interpreted by myself. 12-lead ECG performed at 1259 is interpreted by me as revealing normal sinus rhythm at a rate of 84 beats per minute. Left axis deviation. MS interval is 161 ms, QR mormon 110 ms, QTc is 336 ms. There were no ST or T wave abnormalities to suggest myocardial ischemia or injury. R wave progression across the precordium was satisfactory. By my interpretation this EKG is non-diagnostic for acute ischemia. Disposition Clinical Impression: Abdominal pain, Colitis, Colon cancer Disposition: HOME SELF-CARE Condition: Fair Instructions (If sedation given, give patient instructions): Acute Abdominal Pain (ED) Prescriptions: Dicyclomine [Bentyl] 10 mg PO TID PRN 7 Days #21 capsule PRN Reason: Pain Is patient prescribed a controlled substance at d/c from ED?: No Referrals: Jose Quinones DO [Primary Care Provider] - 1-2 days Time of Disposition: 15:22
[2023-03-02 13:38] LABS: Appearance,Urine Clear (Clear); Bilirubin,Urine Negative (Negative); Blood,Urine Negative (Negative); Color,Urine Light Yellow; Glucose,Urine (UA) 3+ (Negative); Ketones,Urine Negative (Negative); Leukocyte Esterase,Urine Negative (Negative); Mucus,Urine Rare /hpf; Nitrite,Urine Negative (Negative); Protein,Urine 2+ (Negative); Specific Gravity,Urine 1.017 (1.001-1.035); Squamous Epithelial Cell,Urine <1 /hpf (0-4); Urobilinogen,Urine <2.0 mg/dL (<2.0); WBC,Urine <1 /hpf (0-5)
[2023-03-02 13:41] LABS: Basophils % (A) 0 %; Eosinophils # (A) 0.4 k/uL (0-0.7); Eosinophils % (A) 4 %; HCT 39.5 % (39.0-53.0); HGB 12.9 gm/dL (13.0-17.5); Hypochromasia Slight; Lymphocytes % (A) 21 %; MCHC 32.6 g/dL (31.0-37.0); Mean Platelet Volume 8.3; Monocytes # (A) 0.7 k/uL (0-1.0); Monocytes % (A) 7 %; Neutrophils # (A) 6.2 k/uL (1.3-7.7); Neutrophils % (A) 65 %; Platelet Count 217 k/uL (150-450); RBC 4.76 m/uL (4.30-5.90); WBC 9.6 k/uL (3.8-10.6)
[2023-03-02 13:46] LABS: INR 0.9 (<1.2); Partial Thromboplastin Time 22.2 sec (22.0-30.0); Prothrombin Time 10.1 sec (10.0-12.5)
[2023-03-02 13:54] LABS: ALT 21 U/L (4-49); AST 27 U/L (17-59); African American GFR (CKD) 51 (>60 ml/min/1.73 sqM); Alkaline Phosphatase 120 U/L (38-126); Amylase 87 U/L (30-110); Anion Gap 11 mmol/L; Blood Urea Nitrogen 20 mg/dL (9-20); Calcium 9.6 mg/dL (8.4-10.2); Carbon Dioxide 25 mmol/L (22-30); Chloride 105 mmol/L (98-107); Glucose 108 mg/dL (74-99); Lipase 145 U/L (23-300); Non-African American GFR(CKD) 44 (>60 ml/min/1.73 sqM); Potassium 4.2 mmol/L (3.5-5.1); Sodium 141 mmol/L (137-145); Total Bilirubin 0.5 mg/dL (0.2-1.3); Total Protein 7.7 g/dL (6.3-8.2)
--- NOTE | 2023-03-02 13:56 | CT ---
EXAMINATION TYPE: CT abdomen pelvis wo con CT DLP: 1000.6 mGycm, Automated exposure control for dose reduction was used. DATE OF EXAM: 03/02/2023 1:41 PM COMPARISON: PET/CT 01/17/2023, CT abdomen pelvis 11/13/2022, MR liver 12/09/2022 CLINICAL INDICATION:Male, 47 years old with history of abdominal pain, constipation; Constipation, ab dominal pain TECHNIQUE: Standard CT of the abdomen and pelvis without IV or oral contrast. Lack of IV or oral co ntrast limits evaluation of solid and hollow organ viscera. Coronal and sagittal reformats were perfo rmed. FINDINGS: LOWER CHEST: Patchy scarring and/or atelectasis within the lingula. ABDOMEN LIVER: Redemonstration of 2 hypodense lesions within the liver with largest in the right hepatic dome measuring up to 5.4 cm. GALLBLADDER AND BILE DUCTS: Unremarkable. PANCREAS: Unremarkable. SPLEEN: Unremarkable. ADRENAL GLANDS: Unremarkable. KIDNEYS AND URETERS: No evidence of hydronephrosis or renal calculus. lobulations bilaterally. Right inferior pole 1.9 cm cyst. PELVIS BLADDER: Right posterior lateral urinary bladder diverticulum measuring up to 1.1 cm. REPRODUCTIVE: Unremarkable. ABDOMEN & PELVIS STOMACH AND BOWEL: Small to moderate-sized lateral hernia. There is long segment circumferential wall thickening with surrounding fat stranding involving the ascending colon. No pericolonic abscess. The re are 2 short segment focal regions of caliber change within the descending colon with wall thickeni ng. (Series 202, image 55). There is mild distention of the colon proximally to this. Several tiny zayas rrounding lymph nodes identified. No pneumatosis. The appendix is within normal limits. PERITONEUM: No evidence of pneumoperitoneum or free fluid. VASCULATURE: No evidence of aortic aneurysm. MUSCULOSKELETAL: No acute osseous abnormalities. No aggressive osseous lesion. LYMPH NODES: No gross evidence for lymphadenopathy. SOFT TISSUE/ABDOMINAL WALL: Bilateral fat filled inguinal hernias. IMPRESSION: 1. Findings most consistent with colitis involving the descending colon. There are 2 focal regions o f short segment caliber change with wall thickening concerning for colonic malignancy. Direct visuali zation is recommended if not already performed. 2. Redemonstration of 2 hepatic hypodense lesions previously characterized as likely metastasis.
[2023-03-02] MEDS ORDERED: ONDANSETRON 4 MG ODT STARTER PACK 2 TAB BTL PO STA (15:35)
[2023-03-02] MEDS ORDERED: ACET/COD 300 MG/30 MG STARTER PACK 6 TAB BTL PO STA (15:35)
[2023-03-02 16:05] VITALS: BP 170/107; PULSE 93; RESP 18
== END 2023-03-02 15:55 | disposition home or self-care (01) ==
LOC: EC 12:15
DX: K52.9 Noninfective gastroenteritis and colitis, unspecified (principal); C18.9 Malignant neoplasm of colon, unspecified; E78.5 Hyperlipidemia, unspecified; I10 Essential (primary) hypertension; K21.9 Gastro-esophageal reflux disease without esophagitis; Z86.59 Personal history of other mental and behavioral disorders; Z79.899 Other long term (current) drug therapy
CPT/HCPCS: 99284; 96374; 96375; 96361 ×3; 36415; 93005; 80053; 82150; 83605; 83690; 85025; 85610; 85730; 81001; 74176; 96372; J0500; J2405; S0119; C9113

== ENCOUNTER → 2023-04-17 | Outpatient (CLI) | payer BC, OTHER ==
--- NOTE | 2023-04-18 17:59 | PE ---
EXAMINATION TYPE: PET CT fusion skull to thigh DATE OF EXAM: 04/17/2023 CLINICAL INDICATION:Male, 47 years old with history of C18.6 COLON CANCER; TECHNIQUE: Following the intravenous administration of 10.6 mCi of F-18 FDG, whole body images are performed from the skull base to the midthigh. Images are reviewed on the computer in the coronal, a xial, and sagittal planes. Reconstructed rotating images are created on independent workstation and reviewed on the computer. A non-contrast CT is performed in conjunction with the PET scan. Glucose level 111 mg/dL CT DLP: 929.08 mGycm, Automated exposure control for dose reduction was used. COMPARISON: CT 03/02/2023 11/13/2022, PET/CT 01/17/2023, MRI 12/09/2022. FINDINGS: Mediastinal SUV mean is 2.6. Hepatic parenchyma SUV mean is 2.8 SKULL BASE AND NECK: No suspicious radiotracer activity. CHEST, MEDIASTINUM, AND HILAR REGION: No suspicious radiotracer activity. ABDOMEN AND PELVIS: * Hepatic lobe superior lesion max SUV 6.3, previously 9.2. Measuring 3.0 x 2.8 cm, previously up to 5.4 cm on 11/13/2022 and 5.0 x 5.7 cm on 01/17/2023.. * Hypodense lesion within the right hepatic lobe near the gallbladder fossa measuring up to r 2.5 x 1.2 cm, previously 2.4 x 2.6 cm. No appreciable FDG activity, previously 9.8. * Short segment of intense radiotracer uptake with nondistended descending colon and possible bowel thickening max SUV 14.5 previously 18.3. Series 3 image 164. MUSCULOSKELETAL STRUCTURES: No suspicious radiotracer activity. OTHER CT: Right chest wall [id number] tip terminating in the superior vena cava. Mild bilateral gy necomastia changes. There is within normal limits for size. Small hiatal hernia. Bilateral fat-contai lavelle inguinal hernias. The appendix is normal. IMPRESSION: 1. Positive response to therapy. Decreasing size and FDG activity of hepatic lesions concerning for metastatic disease. 2. Descending colonic FDG activity has decreased and could represent patient's primary if not alread y known versus physiologic uptake. Direct visualization recommended if not performed..
== END | disposition home or self-care (01) ==
LOC: RADPETMAIN 08:12
PROVIDERS: ATTEND Internal Medicine Hematology & Oncology
DX: C18.6 Malignant neoplasm of descending colon (principal)
CPT/HCPCS: 78815; A9552

== ENCOUNTER → 2023-05-28 | Outpatient (CLI) | payer BC, OTHER | END | disposition home or self-care (01) | LOC: RADMRIMAIN 05-23 16:46 | DX: Z53.9 Procedure and treatment not carried out, unspecified reason (principal) | CPT/HCPCS: 74183; A9585 ==

== ENCOUNTER → 2023-07-10 | Outpatient (CLI) | payer OTHER ==
--- NOTE | 2023-07-10 12:48 | CT ---
Exam: CT Chest without contrast. Date: 07/10/2023. Comparison: PET/CT on 04/17/2023. History: Colon cancer. Technique: CT examination of the chest was performed without contrast. Coronal and sagittal reformats were performed. CT dose lowering techniques were used, to include: automated exposure control, adjus tment for patient size, and/or use of iterative reconstruction. FINDINGS: Mediastinum and Mae: There is no axillary, mediastinal or hilar lymphadenopathy. Pleural and Pericardial spaces: There are no pleural or pericardial effusions. Upper Abdomen: There is a hypoattenuating lesion in segment 7 of the liver measuring 2.4 cm in diamet er which measure up to 3 cm on the prior PET/CT, however this is somewhat limited for direct comparis on. There is a small sliding hiatal hernia. Cardiovascular: The thoracic aorta is normal in size. Lung Parenchyma and Airways: The lungs are clear. Bones: No fracture or aggressive osseous lesion. IMPRESSION: 1. No acute abnormality in the chest. 2. Hepatic metastasis appears similar to slightly smaller than the previous PET CT examination. 3. Small hiatal hernia.
== END | disposition home or self-care (01) ==
LOC: RADCTMAIN 11:13
PROVIDERS: ATTEND Surgery
DX: C78.7 Secondary malignant neoplasm of liver and intrahepatic bile duct (principal); C18.9 Malignant neoplasm of colon, unspecified; K44.9 Diaphragmatic hernia without obstruction or gangrene
CPT/HCPCS: 71250

== ENCOUNTER → 2023-10-13 | Outpatient (CLI) | payer OTHER ==
--- NOTE | 2023-10-13 14:00 | CT ---
EXAMINATION TYPE: CT chest wo con DATE OF EXAM: 10/13/2023 COMPARISON: 07/10/2023 HISTORY: H/O LIVER, COLON CA F/U CT DLP: [address] of the chest was performed with lung and mediastinal window settings submitted. The la ck of contrast limits evaluation of the vascular, mediastinal and parenchymal structures including th e upper abdomen. LUNGS: The lungs are clear and free of infiltrate. No atelectasis. No pulmonary nodule or mass is de tected. No pleural effusion. No CT evidence of interstitial lung disease. MEDIASTINUM/JOCELYN: Thoracic aorta is of normal caliber with limited evaluation given lack of contrast . The heart is not enlarged. No evidence for mediastinal mass. No lymph nodes greater than 1cm. UPPER ABDOMEN: Hepatic metastases seen previously are difficult to evaluate given lack of contrast. OTHER: No significant other abnormality. IMPRESSION: 1. No evidence for metastatic disease to the chest. 2.Hepatic metastases seen previously are difficult to evaluate given lack of contrast.
--- NOTE | 2023-10-13 19:23 | MR ---
EXAMINATION TYPE: MR liver wo/w con DATE OF EXAM: 10/13/2023 2:08 PM CLINICAL INDICATION:Male, 47 years old with history of C78.7 COLON CANCER METAS N18.32 CKD; PHH, Col on cancer, F/U post surgery, compare to prior MRI. COMPARISON: MRI 05/28/2023 TECHNIQUE: Multiplanar multi-sequence imaging was performed without contrast. Post contrast imaging was performed. Post IV contrast subtraction images were also submitted for review. IV Contrast: 12 cc Gadavist FINDINGS: LOWER CHEST: No heart is mildly enlarged for size. ABDOMEN Liver: No evidence for cirrhosis. There is evidence of hepatic steatosis. * Area of concern in segment 4A near the diaphragm which was FDG avid on 04/17/2023 CT is redemonstr ated measuring now measures approximately 27 x 24 mm previously 20 x 22 mm. There is intrinsic high T 1 signal anterior to this lesion. There is mild rim enhancement within this area. Subtraction imaging suggesting hypoenhancing of the central portion of this lesion. * Right hepatic lobe 9 mm lesion seen on prior in segment 7 has increased area with higher intrinsic T1 signal with associated high T2 signal. The T2 signal appear smaller than the T1-weighted area of signal. Area on T1-weighted imaging now measuring 29 x 23 previously 10 x 10 mm. Delayed imaging demo nstrates peripheral enhancement around this low T1 signal area. Subtraction radiating to suggest hypo enhancement of the central portion. Gallbladder and Bile ducts: No evidence for ductal dilation, or biliary stricture or evidence of chol edocholithiasis. The gallbladder is within normal limits. Pancreas: No ductal dilation. No evidence for solid mass. Spleen: Normal for size. Adrenal glands: Unremarkable. Kidneys: No evidence for obstructive uropathy. No suspicious renal masses. Bilateral high T2 signal r enal cysts. Additional intrinsic high T1 renal cysts are seen bilaterally. No abnormal postcontrast e nhancement which is confirmed on subtraction imaging. No suspicious renal masses. Stomach and Bowel: Small hiatal hernia is present. No evidence for bowel wall thickening or evidence for obstruction.. Peritoneum: No evidence of pneumoperitoneum or free fluid. Vasculature: No aortic aneurysm. Musculoskeletal: The osseous structures appear intact. Lymph Nodes: No gross evidence for lymphadenopathy. Abdominal wall: Postsurgical changes anterior abdominal wall. IMPRESSION: Hepatic lesion appear slightly increased in size compared to immediate prior. When comparing CT from 10/13/2023 and 07/10/2023 the lower density area has increased in size in both of these regions on the latest CT scan of the chest. Findings concerning for malignancy until proven otherwise.
== END | disposition home or self-care (01) ==
LOC: RADCTMAIN 13:12
PROVIDERS: ATTEND Surgery
DX: C78.7 Secondary malignant neoplasm of liver and intrahepatic bile duct (principal); C18.9 Malignant neoplasm of colon, unspecified; N18.32 Chronic kidney disease, stage 3b
CPT/HCPCS: 71250; 74183; A9585

== ENCOUNTER → 2023-10-23 | Outpatient (CLI) | payer OTHER ==
--- NOTE | 2023-10-25 11:32 | PE ---
EXAMINATION TYPE: PET CT fusion skull to thigh DATE OF EXAM: 10/23/2023 CLINICAL INDICATION:Male, 48 years old with history of C18.6 COLON CANCER; TECHNIQUE: Following the intravenous administration of 12.2 mCi of F-18 FDG, whole body images are performed from the skull base to the midthigh. Images are reviewed on the computer in the coronal, a xial, and sagittal planes. Reconstructed rotating images are created on independent workstation and reviewed on the computer. A non-contrast CT is performed in conjunction with the PET scan. Glucose level 132 mg/dL CT DLP: 1114 mGycm, Automated exposure control for dose reduction was used. COMPARISON: CT 10/13/2023, PET/CT 04/17/2023, MRI: 10/13/2023 FINDINGS: Mediastinal SUV mean is 1.6, Hepatic parenchyma SUV mean is 2.0 SKULL BASE AND NECK: No suspicious radiotracer activity. CHEST, MEDIASTINUM, AND HILAR REGION: No suspicious radiotracer activity. ABDOMEN AND PELVIS: No suspicious radiotracer activity. * Hepatic lobe segment 4A superior lesion max SUV 5.7, previously 6.3, 9.2. Measuring 2.6 x 2.1. 3.0 x 2.8 cm, previously up to 5.4 cm on 11/13/2022 and 5.0 x 5.7 cm on 01/17/2023.. * Hypodense lesion within the right hepatic lobe near the gallbladder fossa measuring up to 23 x 17, previously 2.5 x 1.2 cm, 2.4 x 2.6 cm. There remains no appreciable FDG activity above background li elysia, previously 9.8. * Postsurgical changes left colon possibly surgical removal of cancer. MUSCULOSKELETAL STRUCTURES: No suspicious radiotracer activity. OTHER CT: Right chest wall Ljopey-v-Asgq tip terminating in the superior vena cava. Mild bilateral gy necomastia changes. There is within normal limits for size. Small hiatal hernia. Bilateral fat-contai lavelle inguinal hernias. The appendix is normal. IMPRESSION: 1. Positive response to therapy. Decreasing size and FDG activity of segment 4A hepatic lesion. 2. Surgical changes to the descending in area of uptake in prior. No remaining uptake at the anastomo tic site.
== END | disposition home or self-care (01) ==
LOC: RADPETMAIN 07:58
PROVIDERS: ATTEND Internal Medicine Hematology & Oncology
DX: C18.6 Malignant neoplasm of descending colon (principal)
CPT/HCPCS: 78815

== ENCOUNTER → 2024-01-12 | Outpatient (CLI) | payer OTHER ==
--- NOTE | 2024-01-12 09:18 | MR ---
EXAMINATION TYPE: MR liver wo con DATE OF EXAM: 01/12/2024 8:35 AM CLINICAL INDICATION: Male, 48 years old with history of C18.9 colon ca mets to liver; PHH, Hx of colo n cancer, kidney disease COMPARISON: Pet/CT 10/25/2023, MRI 10/13/2023 TECHNIQUE: Multiplanar multi-sequence imaging was performed without contrast. IV Contrast: cc none patient refused FINDINGS: LOWER CHEST: No heart is mildly enlarged for size. ABDOMEN Liver: No evidence for cirrhosis. There is evidence of hepatic steatosis. Limited evaluation with out IV contrast diffusion-weighted imaging the right hepatic lobe observation in segment 4A has increased in size now measuring 32 x 24 mm previously smaller more ill-defined sharan suring 16 x 18 mm. Nodular area in the left hepatic lobe near the amber habitus is also increased in size now measuring 47 x 32 mm previously 28 x 23 mm. Gallbladder and Bile ducts: No evidence for ductal dilation, or biliary stricture or evidence of chol edocholithiasis. The gallbladder is within normal limits. Pancreas: No ductal dilation. No evidence for solid mass. Spleen: Normal for size. Adrenal glands: Unremarkable. Kidneys: No evidence for obstructive uropathy. No suspicious renal masses. Bilateral high T2 signal r enal cysts. Additional intrinsic high T1 renal cysts are seen bilateral No suspicious renal masses. Stomach and Bowel: Small hiatal hernia is present. No evidence for bowel wall thickening or evidence for obstruction.. Peritoneum: No evidence of pneumoperitoneum or free fluid. Vasculature: No aortic aneurysm. Musculoskeletal: The osseous structures appear intact. Lymph Nodes: No gross evidence for lymphadenopathy. Abdominal wall: Postsurgical changes anterior abdominal wall. IMPRESSION: Limited evaluation without IV contrast, Increasing size of lesions within the liver compatible with p rogression of disease. [facility], , 01/12/2024 9:16 AM
== END | disposition home or self-care (01) ==
LOC: RADMRIMAIN 07:28
PROVIDERS: ATTEND Surgery
DX: C78.7 Secondary malignant neoplasm of liver and intrahepatic bile duct (principal); C18.9 Malignant neoplasm of colon, unspecified; K44.9 Diaphragmatic hernia without obstruction or gangrene
CPT/HCPCS: 74181

== ENCOUNTER → 2024-02-09 | Outpatient (CLI) | payer OTHER ==
--- NOTE | 2024-02-09 12:43 | CT ---
EXAMINATION TYPE: CT chest wo con DATE OF EXAM: 02/09/2024 COMPARISON: 10/23/2023, 10/13/2023 HISTORY: f/u liver and colon cancer CT DLP: 557.3 mGycm. Automated Exposure Control for Dose Reduction was Utilized. TECHNIQUE: CT scan of the thorax is performed without IV contrast. FINDINGS: LUNGS: The lungs are grossly clear, there is no concerning parenchymal mass or nodule identified. T here is no pleural effusion or pneumothorax seen. The tracheobronchial tree is patent. Subsegmental consolidation noted left upper lobe most typical of atelectasis. There is a 4 mm nodule left lower lobe image 44 series 4. Retrospectively stable. There is a 1 mm pulmonary micronodule left upper lobe image 17 series 4 retrospectively stable. MEDIASTINUM: Lack of IV contrast is noted to limit evaluation for mediastinal and especially hilar ad enopathy. There are no definitive greater than 1 cm hilar or mediastinal lymph nodes. Mild cardiomega ly. There is a trace of pericardial effusion. Mediport catheter noted with the tip of the catheter at the level of the SVC. Main pulmonary artery i s prominent in size measuring 4.4 cm correlate for pulmonary arterial hypertension. Thoracic ascendin g aorta aneurysm measuring 4.4. OTHER: Hypertrophic and degenerative changes of the spine. Trace gynecomastia. There is a hiatal arline ia. Multiple hepatic lesions again noted compatible with metastases. Surgical clips in the gallbladde r fossa. There is nodularity of the right adrenal gland gland suspicious for metastases. IMPRESSION: 1. Stable 4 mm left lower lobe pulmonary nodule too small to characterize. Retrospectively noted on m chema prior exam including PET CT scan of 01/17/2023. Would recommend a continued surveillance. Mos t likely a benign etiology. 2. There is a 4.4 cm ascending thoracic aortic aneurysm. 3. Pulmonary arterial artery and enlargement which is often associated with pulmonary arterial hypert ension. Hepatic metastases. 4. Findings suspicious for right adrenal metastases. Nodule measures 1.5 cm. Follow-up recommendations for incidental pulmonary nodules are per [employer] or [employer]. [facility], , 02/09/2024 12:40 PM
== END | disposition home or self-care (01) ==
LOC: RADCTMAIN 08:40
PROVIDERS: ATTEND Surgery
DX: N18.32 Chronic kidney disease, stage 3b
CPT/HCPCS: 71250

== ENCOUNTER → 2024-02-18 | Outpatient (CLI) | payer OTHER ==
--- NOTE | 2024-02-18 16:31 | US ---
EXAMINATION TYPE: US kidneys/renal and bladder DATE OF EXAM: 02/18/2024 COMPARISON: PET/CT 10/23/2023, 04/17/2023, CT abdomen and pelvis 03/02/2023 CLINICAL INDICATION: Male, 48 years old with history of R79.89 OTHER SPECIFIED ABNORMAL FINDINGS OF B LOOD; Elevated creatinine. Nephrotic syndrome TECHNIQUE: Grayscale and color Doppler imaging of the bilateral kidneys and urinary bladder: FINDINGS: EXAM MEASUREMENTS: Right Kidney: 12.2 x 6.4 x 5.1 cm Left Kidney: 12.2 x 6.9 x 5.5 cm Right Kidney: lobulated contour. Anechoic area upper pole = 1.1cm Left Kidney: lobulated contour Bladder: diverticula noted Bilateral Jets seen: no There is no evidence for hydronephrosis at this point in time. Lobulated contour to the kidneys. No n ephrolithiasis is seen. Cortical medullary differentiation is maintained bilaterally. Simple right up per pole 1.1 cm thin-walled cyst. The urinary bladder is anechoic. Urinary bladder diverticulum note d on the right. IMPRESSION: 1. No hydronephrosis or nephrolithiasis. 2. Right-sided urinary bladder diverticulum. [facility], , 02/18/2024 4:28 PM
== END | disposition home or self-care (01) ==
LOC: RADUSWWP 14:39
PROVIDERS: ATTEND Family Medicine
CPT/HCPCS: 76770; 82565

== ENCOUNTER → 2024-04-22 | Outpatient (CLI) | payer OTHER ==
--- NOTE | 2024-04-22 16:04 | MR ---
EXAMINATION TYPE: MR abdomen wo con DATE OF EXAM: 04/22/2024 9:40 AM COMPARISON: MRI 01/12/2024. CLINICAL INDICATION: Male, 48 years old with history of C18.9 COLON CANCER C78.7 LIVER CANCER;, F/U M RI for liver and colon cancer. TECHNIQUE: Multiplanar multi-sequence imaging was performed without contrast. IV Contrast: None FINDINGS: LOWER CHEST: No gross irregularity. ABDOMEN Liver: No evidence for cirrhosis. Signal dropout on chemical shift out of phase imaging. Evaluation l imited without contrast. The The masses in the liver have increased in size including the segment 4A observation measuring 6.7 x 5 .3, previously 5.0 x 4.1 cm. In segment 4A/8 laterally measuring 4.6 x 4.3 cm, personally 3.0 x 2.6 c m. Gallbladder and Bile ducts: No evidence for ductal dilation, or biliary stricture or evidence of chol edocholithiasis. The gallbladder is within normal limits. Pancreas: No ductal dilation. No evidence for solid mass. Spleen: Normal for size. Adrenal glands: More conspicuous right adrenal gland nodule measuring 29 x 19 mm. Kidneys: No evidence for obstructive uropathy. No suspicious renal masses. Bilateral high T2 signal r enal cysts. Additional intrinsic high T1 renal cysts are seen bilateral No suspicious renal masses. Stomach and Bowel: Small hiatal hernia is present. No evidence for bowel wall thickening or evidence for obstruction.. Peritoneum: No evidence of pneumoperitoneum or free fluid. Vasculature: No aortic aneurysm. Musculoskeletal: The osseous structures appear intact. Lymph Nodes: No gross evidence for lymphadenopathy. Abdominal wall: Postsurgical changes anterior abdominal wall. IMPRESSION: 1. Limited evaluation without IV contrast, persistent increasing size of hepatic observations with i ncreasing size of right adrenal gland lesion, findings most compatible with progression of disease. H epatic steatosis. 2. Small hiatal hernia remains. [facility], , 04/22/2024 4:01 PM
--- NOTE | 2024-04-23 19:26 | CT ---
EXAMINATION TYPE: CT chest wo con DATE OF EXAM: 04/22/2024 8:55 AM COMPARISON: 10/23/2023, 04/22/2024, 02/09/2024 CLINICAL INDICATION: Male, 48 years old with history of C18.9 COLON CANCER C78.7 LIVER CANCER; PHH, H x liver, colon ca, has lung nodules TECHNIQUE: Multiple axial images were obtained through the chest. Sagittal and coronal reformats were created for review. MIP was performed on a separate workstation. Contrast used: mL of (None if empty) Oral contrast used: (None if empty) CT DLP: 578.30 mGycm, Automated exposure control for dose reduction was used. FINDINGS: LUNGS/ PLEURA: No focal consolidation, pneumothorax or pleural effusion. Stable left lower lobe 4 mm pulmonary nodule. AIRWAY: Patent and unremarkable. HEART: Size within normal limits. MEDIASTINUM: No gross evidence of adenopathy. Hernia is present. VASCULATURE: No aortic aneurysm. Stable ascending thoracic aorta ectasia up to 41 mm. Right chest wa ll Jllosp-[id number]-Ltgt with tip terminating in the superior vena cava. MUSCULOSKELETAL: No acute osseous abnormalities SOFT TISSUES/LYMPH NODES: Unremarkable. LOWER NECK: No significant findings. UPPER ABDOMEN: Right hepatic lobe 44 mm observation along with one more centrally measuring up to 65 mm similar to MR abdomen 04/22/2024. Postsurgical changes in the left upper quadrant: With suture ale ntified. The gallbladder surgically absent. Right adrenal lesion1 has increased in size measuring up to 30 mm. IMPRESSION: Stable left lower lobe 4 mm pulmonary nodule. Enlarging hepatic lesions and right adrenal lesions without evidence for lymphadenopathy above the di aphragm. [facility], , 04/23/2024 7:23 PM
== END | disposition home or self-care (01) ==
LOC: RADCTMAIN 08:36
PROVIDERS: ATTEND Surgery
DX: C18.9 Malignant neoplasm of colon, unspecified (principal); C78.7 Secondary malignant neoplasm of liver and intrahepatic bile duct; K44.9 Diaphragmatic hernia without obstruction or gangrene; K76.0 Fatty (change of) liver, not elsewhere classified; R91.1 Solitary pulmonary nodule
CPT/HCPCS: 71250; 74181

== ENCOUNTER → 2024-08-27 | Outpatient (CLI) | payer OTHER ==
--- NOTE | 2024-08-27 13:41 | CT ---
EXAMINATION TYPE: CT ChestAbdPelvis wo con DATE OF EXAM: 08/27/2024 12:27 PM COMPARISON: PET/CT 10/23/2023 CLINICAL INDICATION: Male, 48 years old with history of C18.6 COLON CANCER; PHH, Hx colon ca Technique: CT ChestAbdPelvis wo con; coronal and sagittal reconstructions performed. CT DLP: 1384 mGycm, Automated exposure control for dose reduction was used. Findings: CHEST: Right anterior chest wall injection port with catheter tip at the upper SVC. Heart normal size without pericardial effusion. No significant coronary calcifications are seen. Similar aneurysm ascending aorta 4.1 cm. Aberrant direct takeoff left vertebral artery directly from the aortic arch. Large caliber main right and left pulmonary arteries measuring up to 2.9 cm suggesting underlying pul monary arterial hypertension. No thoracic lymphadenopathy by CT size criteria. Lungs show mild to moderate emphysematous change. Similar strandy scarring at the inferior lingula. N o suspicious new or enlarging pulmonary nodule identified. ABDOMEN: Small hiatal hernia. Considerable interval enlargement of the patient's hepatic masses. 7.1 cm anterior right liver lobe ( 4.5 cm in March 2024), 9.0 cm mid hepatic dome (6.6 cm in March 2024), and probably couple cont iguous hypodense masses right hepatic dome measuring up to 7.9 cm (approximately 4.3 cm in March 29). Cholecystectomy clips. Lobulated mass right adrenal gland currently 6.2 x 4.8 cm, new from 10/23/2023 and measured 3.0 cm on the 04/22/24 CT chest exam. Left adrenal gland, spleen with hilar splenule, and pancreas within normal limits. Redemonstrated bilateral lobulated renal contours. Suspect underlying 1.8 cm cyst medial lower pole r ight kidney. No hydronephrosis on either side. No dilated small bowel, free fluid, or free air. No mesenteric or retroperitoneal lymph adenopathy. Normal appendix. Scattered mild stool. Previous resection and reanastomosis near the splenic flexure of the colon. No suspicious soft tissue in this region. Pelvis: Patulous bilateral inguinal canals. Moderate circumferential bladder wall thickening could reflect ch ronic bilateral hypertrophy or cystitis. Clinically correlate. Prostate gland mildly enlarged 4.4 cm wide. Correlate with patient's symptoms and PSA values. No abnormal fluid collection in the pelvis or pelvic lymphadenopathy. Bones: No osseous destructive process seen. IMPRESSION: 1. Compared to 04/22/2024, there has been disease progression with enlarging hepatic masses currently measuring up to 9.0 cm versus 6.6 cm at that time. 2. Enlarging right adrenal gland mass currently 6.2 cm versus 3.0 cm in March 2024. 3. Previous resection and reanastomosis of the splenic flexure of the colon. No other metastatic dise ase is seen. [facility], , 08/27/2024 1:39 PM
== END | disposition home or self-care (01) ==
LOC: RADCTMAIN 11:15
PROVIDERS: ATTEND Internal Medicine Hematology & Oncology
DX: C18.6 Malignant neoplasm of descending colon (principal); I10 Essential (primary) hypertension; E27.9 Disorder of adrenal gland, unspecified; Z71.3 Dietary counseling and surveillance; Z87.441 Personal history of nephrotic syndrome
CPT/HCPCS: 71250; 74176